=== PATIENT | female | born 1980 | race Caucasian/White ===

== ENCOUNTER 2016-09-01 06:33 | Emergency (ER) | payer BC ==
[2016-09-01] MEDS ORDERED: Ondansetron 4 MG/2 ML SDV IVPUSH ONE (07:10)
[2016-09-01] MEDS ORDERED: Pantoprazole 40 MG Vial IVPUSH ONE (07:10)
[2016-09-01] MEDS ORDERED: Sodium Chloride 0.9% 1,000 ML IV ONE ×2 (07:10→08:43)
[2016-09-01] MEDS ORDERED: HYDROmorphone 2 MG/ML Syringe IVPUSH ONE (07:11)
[2016-09-01] MEDS ORDERED: Sodium Chloride 0.9% 10 ML Syringe FLUSH PRN (07:11)
[2016-09-01] MEDS ORDERED: Sodium Chloride 0.9% 2.5 ML Syringe FLUSH PRN (07:11)
--- NOTE | 2016-09-01 07:16 | EDM.PDOC ---
ED HPI GENERAL MEDICAL PROBLEM - General Chief Complaint: General Stated Complaint: DEHYDRATION Time Seen by Provider: 09/01/16 07:02 - History of Present Illness INITIAL COMMENTS - FREE TEXT/NARRATIVE: HISTORY AND PHYSICAL: History of present illness: The patient is a 35-year-old female with a history of cholecystectomy and many year history of episodic abdominal pain with vomiting presents with mid abdominal pain that is radiated throughout the entire abdomen and intractable vomiting that started last evening. According to the patient she has had multiple episodes of this over the last many years but her last bad episode was about 3 years ago. She says she was seen at the [facility] in the past and had multiple tests and the only thing they could find was "bile reflux". The patient has had no other bowel surgeries but has had scopes in the past and has not seen a doctor for this recently. She does not site any particular trigger or food intolerances. She has associated diarrhea with this which is watery and greenish yellow in color without black or bloody stools. The pain does not localize to the upper or lower, right or left sides of her abdomen. She says it is more diffuse but originates in the middle of her abdomen. She says she usually just deals with this at home and it has not been this bad in a long time. She says that in the beginning when this started several years ago she would have multiple episodes and they seem to taper off and not occur as frequently. Patient denies any dysuria or hematuria and has no flank or back pain. The patient initially tells me when I first walked in the room that she is just dehydrated and wants something for hydration as well as something for the nausea and the pain and that "you're not to figure out what's wrong with me ". She has not had any formal testing for this problem in the last 3 years. Patient states she was never told that she had IBS syndrome and protonix in the past but was also never told that she had ulcer disease The patient also states that she had followed with the chemical production engineer's [facility] in [place] but he left and she did not get reconnected with anyone else. She also has a local provider at [facility], Dr. Loomis, who she has not seen Review of systems: As per history of present illness and below otherwise all systems reviewed and negative. Past medical history: As per history of present illness and as reviewed below otherwise noncontributory. Surgical history: As per history of present illness and as reviewed below otherwise noncontributory. Social history: No reported history of drug or alcohol abuse. Family history: As per history of present illness and as reviewed below otherwise noncontributory. Physical exam: Gen.: Well-developed well-nourished female was then tearful and uncomfortable in the room but moves easily and ambulates without assistance HEENT: Atraumatic, normocephalic, negative for conjunctival pallor or scleral icterus, mucous membranes moist, throat tachycardia, neck supple, nontender, trachea midline. Lungs: Clear to auscultation, breath sounds equal bilaterally, chest nontender. Heart: S1S2, regular rhythm and slightly tachycardic rate on my evaluation, negative for clicks, rubs, or JVD. Abdomen: Soft, nondistended, bowel sounds are hypoactive and abdomen exhibits only minimal tenderness on deep palpation with distraction in the periumbilical area, there is no rebound or guarding appreciated on my exam. Negative for masses or hepatosplenomegaly. Negative for costovertebral tenderness. Pelvis: Stable nontender. Genitourinary: Deferred. Rectal: Deferred. Extremities: Atraumatic, negative for cords or calf pain. Neurovascular unremarkable. Neuro: Awake, alert, oriented. Cranial nerves II through XII unremarkable. Cerebellum unremarkable. Motor and sensory unremarkable throughout. Exam nonfocal. Diagnostics: CBC CMP amylase lipase lactic acid UA UCG CT scan of the abdomen and pelvis Therapeutics: IV IV fluids and proton X Zofran and Dilaudid Patient told nursing that prior to going to CT when she was reevaluated by them she had no nausea no more vomiting and the pain was significantly improved. 1012: Dr Liang the radiologist called me and states that he is not clear about what's going on in the right lower quadrant but cannot clearly state that there is no appendicitis and it is unclear if it's complete GI for their his gynecologic involvement. I will proceed to contact our surgeon aviation warfare systems operator and discussed the case with her 1012: Case was discussed with her surgeon aviation warfare systems operator Dr. Neri; she has reviewed the CT scan and the labs and feels that if the patient is pain-free she can go home with tramadol and Zofran and she will see the patient in her clinic tomorrow. I've inform the patient of all testing results and the care plan for follow-up urgently tomorrow in the clinic and that Dr. Neri's office will make sure to give her an appointment and contact her but I will also give her information to contact them. Advised on reasons to return and I prescribe Zofran and tramadol for home. Impression: Episodic abdominal pain and vomiting etiology unclear Definitive disposition and diagnosis as appropriate pending reevaluation and review of above. Abdominal Pain Score (Numeric/FACES): 6 - Related Data Allergies Allergy/AdvReac Type Severity Reaction Status Date / Time No Known Allergies Allergy Verified 06/20/13 15:26 Home Meds: Home Meds . [No Known Home Meds] 09/01/16 [History] Social & Family History - Alcohol Use Days Per Week of Alcohol Use: 0 - Recreational Drug Use Recreational Drug Use: No Drug Use in Last 12 Months: No ED ROS GENERAL - Review of Systems Review Of Systems: ROS reveals no pertinent complaints other than HPI. ED EXAM, GENERAL - Physical Exam Exam: See Below (See dictation) Course - Vital Signs Last Recorded V/S: Last Vital Signs Temp 36.7 C 09/01/16 10:01 Pulse 60 09/01/16 10:01 Resp 16 09/01/16 10:01 BP 95/51 L 09/01/16 10:01 Pulse Ox 95 09/01/16 10:01 - Orders/Labs/Meds Orders: Active Orders 24 hr Category Date Time Status Sodium Chloride 0.9% [Saline Flush] Med 09/01/16 07:11 Active 10 ml FLUSH ASDIRECTED PRN Sodium Chloride 0.9% [Saline Flush] Med 09/01/16 07:11 Active 2.5 ml FLUSH ASDIRECTED PRN Saline Lock Insert [OM.PC] Stat Oth 09/01/16 07:10 Ordered Medication Orders Sodium Chloride (Saline Flush) 10 ml FLUSH ASDIRECTED PRN PRN Reason: Keep Vein Open Sodium Chloride (Saline Flush) 2.5 ml FLUSH ASDIRECTED PRN PRN Reason: Keep Vein Open Labs: Laboratory Tests 09/01/16 09/01/16 09/01/16 Range/Units 06:55 06:55 07:18 WBC 9.07 (4.0-11.0) K/uL RBC 4.92 (4.30-5.90) M/uL Hgb 15.4 (12.0-16.0) g/dL Hct 43.6 (36.0-46.0) % MCV 88.6 (80.0-98.0) fL MCH 31.3 (27.0-32.0) pg MCHC 35.3 (31.0-37.0) g/dL RDW Std Deviation 43.7 (28.0-62.0) fl RDW Coeff of Afshan 14 (11.0-15.0) % Plt Count 245 (150-400) K/uL MPV 10.00 (7.40-12.00) fL Neut % (Auto) 87.8 H (48.0-80.0) % Lymph % (Auto) 6.3 L (16.0-40.0) % [place] % (Auto) 5.8 (0.0-15.0) % Eos % (Auto) 0.0 (0.0-7.0) % Baso % (Auto) 0.1 (0.0-1.5) % Neut # (Auto) 8.0 H (1.4-5.7) K/uL Lymph # (Auto) 0.6 (0.6-2.4) K/uL [place] # (Auto) 0.5 (0.0-0.8) K/uL Eos # (Auto) 0.0 (0.0-0.7) K/uL Baso # (Auto) 0.0 (0.0-0.1) K/uL Nucleated RBC % 0.0 /100WBC Nucleated RBCs # 0 K/uL Lactate (0.20-2.00) mmol/L Sodium (136-146) mmol/L Potassium (3.5-5.1) mmol/L Chloride (98-110) mmol/L Carbon Dioxide (21-31) mmol/L BUN (6.0-23.0) mg/dL Creatinine (0.6-1.5) mg/dL Est Cr Clr Drug Dosing mL/min Estimated GFR (MDRD) ml/min Glucose (60-110) mg/dL Calcium (8.8-10.8) mg/dL Total Bilirubin (0.1-1.5) mg/dL AST (5-40) IU/L ALT (8-54) IU/L Alkaline Phosphatase (40-150) Total Protein (6.0-8.0) g/dL Albumin (3.5-5.0) g/dL Globulin (2.0-3.5) g/dL Albumin/Globulin Ratio (1.3-2.8) Amylase (10-90) U/L Lipase (7-80) U/L Urine Color YELLOW Urine Appearance CLEAR Urine pH 6.0 (5.0-8.0) Ur Specific [place] >= 1.030 (1.001-1.035) Urine Protein 100 (NEGATIVE) mg/dL Urine Glucose (UA) 100 H (NEGATIVE) mg/dL Urine Ketones NEGATIVE (NEGATIVE) mg/dL Urine Occult Blood MODERATE (NEGATIVE) Urine Nitrite NEGATIVE (NEGATIVE) Urine Bilirubin SMALL H (NEGATIVE) Urine Ictotest NEGATIVE Urine Urobilinogen 1.0 (<2.0) EU/dL Ur Leukocyte Esterase NEGATIVE (NEGATIVE) Urine RBC 9-12 (0-2/HPF) Urine WBC 2-4 (0-5/HPF) Ur Epithelial Cells FEW (NONE-FEW) Urine Bacteria FEW (NEGATIVE) Urine Mucus LIGHT (NONE-MOD) Urine HCG, Qual NEGATIVE (NEGATIVE) 09/01/16 09/01/16 Range/Units 07:18 07:18 WBC (4.0-11.0) K/uL RBC (4.30-5.90) M/uL Hgb (12.0-16.0) g/dL Hct (36.0-46.0) % MCV (80.0-98.0) fL MCH (27.0-32.0) pg MCHC (31.0-37.0) g/dL RDW Std Deviation (28.0-62.0) fl RDW Coeff of Afshan (11.0-15.0) % Plt Count (150-400) K/uL MPV (7.40-12.00) fL Neut % (Auto) (48.0-80.0) % Lymph % (Auto) (16.0-40.0) % [place] % (Auto) (0.0-15.0) % Eos % (Auto) (0.0-7.0) % Baso % (Auto) (0.0-1.5) % Neut # (Auto) (1.4-5.7) K/uL Lymph # (Auto) (0.6-2.4) K/uL [place] # (Auto) (0.0-0.8) K/uL Eos # (Auto) (0.0-0.7) K/uL Baso # (Auto) (0.0-0.1) K/uL Nucleated RBC % /100WBC Nucleated RBCs # K/uL Lactate 2.2 H (0.20-2.00) mmol/L Sodium 141 (136-146) mmol/L Potassium 3.6 (3.5-5.1) mmol/L Chloride 112 H (98-110) mmol/L Carbon Dioxide 14 L (21-31) mmol/L BUN 18 (6.0-23.0) mg/dL Creatinine 1.2 (0.6-1.5) mg/dL Est Cr Clr Drug Dosing 55.16 mL/min Estimated GFR (MDRD) 51.7 ml/min Glucose 190 H (60-110) mg/dL Calcium 9.3 (8.8-10.8) mg/dL Total Bilirubin 0.4 (0.1-1.5) mg/dL AST 22 (5-40) IU/L ALT 24 (8-54) IU/L Alkaline Phosphatase 65 (40-150) Total Protein 7.9 (6.0-8.0) g/dL Albumin 4.7 (3.5-5.0) g/dL Globulin 3.2 (2.0-3.5) g/dL Albumin/Globulin Ratio 1.5 (1.3-2.8) Amylase 16 (10-90) U/L Lipase 8 (7-80) U/L Urine Color Urine Appearance Urine pH (5.0-8.0) Ur Specific [place] (1.001-1.035) Urine Protein (NEGATIVE) mg/dL Urine Glucose (UA) (NEGATIVE) mg/dL Urine Ketones (NEGATIVE) mg/dL Urine Occult Blood (NEGATIVE) Urine Nitrite (NEGATIVE) Urine Bilirubin (NEGATIVE) Urine Ictotest Urine Urobilinogen (<2.0) EU/dL Ur Leukocyte Esterase (NEGATIVE) Urine RBC (0-2/HPF) Urine WBC (0-5/HPF) Ur Epithelial Cells (NONE-FEW) Urine Bacteria (NEGATIVE) Urine Mucus (NONE-MOD) Urine HCG, Qual (NEGATIVE) Meds: Medications Generic Name Dose Route Start Last Admin Trade Name Freq PRN Reason Stop Dose Admin Sodium Chloride 10 ml 09/01/16 07:11 Saline Flush FLUSH ASDIRECTED PRN Keep Vein Open Sodium Chloride 2.5 ml 09/01/16 07:11 Saline Flush FLUSH ASDIRECTED PRN Keep Vein Open Discontinued Medications Generic Name Dose Route Start Last Admin Trade Name Freq PRN Reason Stop Dose Admin Hydromorphone HCl 1 mg 09/01/16 07:11 09/01/16 08:07 Dilaudid IVPUSH 09/01/16 07:12 1 mg ONETIME ONE Administration Sodium Chloride 1,000 mls @ 999 mls/hr 09/01/16 07:10 09/01/16 07:45 Normal Saline IV 09/01/16 08:10 999 mls/hr STAT ONE Administration Sodium Chloride 1,000 mls @ 999 mls/hr 09/01/16 08:43 09/01/16 09:05 Normal Saline IV 09/01/16 09:43 999 mls/hr STAT ONE Administration Iopamidol 100 ml 09/01/16 07:26 Isovue Multipack-370 (76%) IVPUSH 09/01/16 07:27 ONETIME STA Ondansetron HCl 4 mg 09/01/16 07:10 09/01/16 07:58 Zofran IVPUSH 09/01/16 07:11 4 mg ONETIME ONE Administration Pantoprazole Sodium 80 mg 09/01/16 07:10 09/01/16 08:00 Protonix Iv IVPUSH 09/01/16 07:11 80 mg .BOLUS ONE Administration Departure - Departure Time of Disposition: 10:23 Disposition: Home, Self-Care 01 Condition: Good Clinical Impression: Vomiting, Abdominal pain - Discharge Information Forms: ED Department Discharge Additional Instructions: The following information is given to patients seen in the emergency department who are being discharged to home. This information is to outline your options for follow-up care. We provide all patients seen in our emergency department with a follow-up referral. The need for follow-up, as well as the timing and circumstances, are variable depending upon the specifics of your emergency department visit. If you don't have a primary care physician on staff, we will provide you with a referral. We always advise you to contact your personal physician following an emergency department visit to inform them of the circumstance of the visit and for follow-up with them and/or the need for any referrals to a consulting specialist. The emergency department will also refer you to a specialist when appropriate. This referral assures that you have the opportunity for followup care with a specialist. All of these measure are taken in an effort to provide you with optimal care, which includes your followup. Under all circumstances we always encourage you to contact your private physician who remains a resource for coordinating your care. When calling for followup care, please make the office aware that this follow-up is from your recent emergency room visit. If for any reason you are refused follow-up, please contact the [facility] emergency department at and ask to speak to the emergency department charge nurse. [address] [place] [address] [facility] [address] [place] [phone] Please call and schedule a follow-up appointment with your provider [facility] Dr. Loomis for sometime next week and he will be contacted by Dr Neri's office with an appointment time in her clinic tomorrow to be seen and reevaluated. Please use medications as needed and prescribed. Return to ER as neededdiscussed. Please go and have outpatient labs performed tomorrow prior to your appointment with Dr. Neri. - My Orders Last 24 Hours: My Active Orders 09/01/16 07:10 Saline Lock Insert [OM.PC] Stat 09/01/16 07:11 Sodium Chloride 0.9% [Saline Flush] 10 ml FLUSH ASDIRECTED PRN Sodium Chloride 0.9% [Saline Flush] 2.5 ml FLUSH ASDIRECTED PRN - Assessment/Plan Last 24 Hours: My Active Orders 09/01/16 07:10 Saline Lock Insert [OM.PC] Stat 09/01/16 07:11 Sodium Chloride 0.9% [Saline Flush] 10 ml FLUSH ASDIRECTED PRN Sodium Chloride 0.9% [Saline Flush] 2.5 ml FLUSH ASDIRECTED PRN
[2016-09-01] MEDS ORDERED: Iopamidol 755 MG/ML 500 ML Multipack Bottle IVPUSH STA (07:26)
--- NOTE | 2016-09-01 10:16 | CT ---
CT of the abdomen and pelvis with contrast. HISTORY: Pain TECHNIQUE: Axial CT images were obtained of the abdomen and pelvis following administration of 60 mL of Isovue-370 in the right antecubital fossa without complication. Coronal and sagittal reconstruct ions obtained. FINDINGS: The lung bases are clear, no pleural effusion. The liver, spleen, adrenal glands, and pancreas appear normal. Cholecystectomy clips are noted. The common bile duct measures 7 mm. There is no bulky retroperitoneal lymphadenopathy or abdominal ascit es. The kidneys enhance and function symmetrically without evidence of obstructive uropathy. Tiny right renal cysts are noted. The large and small bowel are grossly normal in caliber without evidence of obstruction. The append ix is not identified. There is a conglomeration of loops of bowel and fluid within the right lower q uadrant. There are several small pockets of gas also noted, is predominantly appear intraluminal, ho wever a few cannot be confirmed. There is an IUD noted within the uterus. No significant free pelvic fluid. No bulky pelvic lymphadenopathy. No suspicious osseous abnormalities identified. IMPRESSION: 1. The appendix is not identified. Multiple loops of mildly prominent collapsed bowel are noted with in the right upper quadrant, with minimal adjacent stranding. An acute process is not excluded. 2. Otherwise grossly unremarkable CT abdomen and pelvis.
[2016-09-01 11:18] VITALS: BP 98/55
== END 2016-09-01 11:13 | disposition home or self-care (01) ==
LOC: MW.ED 06:33
DX: R11.10 Vomiting, unspecified (principal); R10.33 Periumbilical pain; Z90.49 Acquired absence of other specified parts of digestive tract
CPT/HCPCS: 36415; 74177; 80053; 81001; 81025; 82150; 83605; 83690; 85025; 96361; 96374; 96375; 99284; C9113; J1170; J2405; J7040

== ENCOUNTER 2016-09-15 07:20 | Observation (INO) | payer BC ==
[~2016-09-15 07:20] MED LIST: Sodium Chloride 0.9% 10 ML Syringe FLUSH PRN; Sodium Chloride 0.9% 2.5 ML Syringe FLUSH PRN
[2016-09-15] MEDS ORDERED: Propofol 200 MG/20 ML SDV ONE ×2 (07:25→08:34)
[2016-09-15] MEDS ORDERED: Lidocaine 2% 5 ML SDV ONE (07:25)
[2016-09-15] MEDS: Lactated Ringers 1,000 ML IV SCH (07:46)
--- NOTE | 2016-09-15 07:53 | PCM.PREANE ---
Preanesthetic Assessment - Anesthesia/Transfusion/Family Hx Anesthesia History: Prior Anesthesia Without Reaction Other Type of Anesthesia Reaction Comment: PT DENIES ANY PROBLEMS WITH PAST ANESTHESIA Family History of Anesthesia Reaction: No Transfusion History: No Prior Transfusion(s) - Review of Systems General: No Symptoms Pulmonary: No Symptoms Cardiovascular: No Symptoms Gastrointestinal: No symptoms Neurological: No Symptoms Other: Reports: None - Physical Assessment NPO Status Date: 09/14/16 O2 Sat by Pulse Oximetry: 97 Respiratory Rate: 16 Vital Signs: Last Vital Signs Temp 36.2 C 09/15/16 07:44 Pulse 64 09/15/16 07:44 Resp 16 09/15/16 07:44 BP 101/65 09/15/16 07:44 Pulse Ox 97 09/15/16 07:44 Height: 1.6 m Weight: 60.781 kg ASA Class: 2 Mental Status: Alert & Oriented x3 Airway Class: Mallampati = 2 Dentition: Reports: Normal Dentition ROM/Head Extension: Full Lungs: Clear to auscultation, Normal respiratory effort - Lab Values: Laboratory Last Values Urine HCG, Qual NEGATIVE (NEGATIVE) 09/15/16 07:25 - Allergies Allergies/Adverse Reactions: Allergies Allergy/AdvReac Type Severity Reaction Status Date / Time No Known Allergies Allergy Verified 06/20/13 15:26 - Anesthesia Plan Pre-Op Medication Ordered: None - Acknowledgements Anesthesia Type Planned: MAC Pt an Appropriate Candidate for the Planned Anesthesia: Yes Alternatives and Risks of Anesthesia Discussed w Pt/Guardian: Yes Pt/Guardian Understands and Agrees with Anesthesia Plan: Yes PreAnesthesia Questionnaire Gastrointestinal History: Reports: GERD, Other (See Below) Other Gastrointestinal History: "bile reflux" Genitourinary History: Reports: None 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: Reports: Psychiatric History: - Infectious Disease History Infectious Disease History: Reports: Chicken Pox - Past Surgical History Head Surgeries/Procedures: Reports: None GI Surgical History: Reports: Cholecystectomy, Other (See Below) Other GI Surgeries/Procedures: laparoscopy Female Surgical History: Reports: Section - SUBSTANCE USE Smoking Status *Q: Current Every Day Smoker Tobacco Use Within Last Twelve Months: Cigarettes Days Per Week of Alcohol Use: 0 Recreational Drug Use History: No - HOME MEDS Home Medications: Home Meds Multivitamin [Multivitamins] 1 tab PO DAILY 09/10/16 [History] - CURRENT (IN HOUSE) MEDS Current Meds: Current Medications Lactated Ringer's (Ringers, Lactated) 1,000 mls @ 125 mls/hr IV ASDIRECTED DAVID Last Admin: 09/15/16 07:46 Dose: 125 mls/hr Sodium Chloride (Saline Flush) 10 ml FLUSH ASDIRECTED PRN PRN Reason: Keep Vein Open Sodium Chloride (Saline Flush) 2.5 ml FLUSH ASDIRECTED PRN PRN Reason: Keep Vein Open Discontinued Medications Lidocaine (Xylocaine-Mpf 2%) Confirm Administered Dose 5 ml .ROUTE .STK-MED ONE Stop: 09/15/16 07:26 Propofol (Diprivan 20 Ml) Confirm Administered Dose 400 mg .ROUTE .STK-MED ONE Stop: 09/15/16 07:26
[2016-09-15] MEDS ORDERED: Albuterol/Ipratropium 3.0-0.5 MG/3 ML Neb Soln NEB ONE (09:01)
--- NOTE | 2016-09-15 09:17 | PCM.OPNOTE ---
- General Post-Op/Procedure Note Date of Surgery/Procedure: 09/15/16 Operative Procedure(s): EGD and colonoscopy Findings: Hiatal hernia, bile reflux gastritis, sigmoid colon polyp Pre Op Diagnosis: Nausea and vomiting, change in bowel habits Post-Op Diagnosis: HIatal hernia, bile reflux gastritis, and sigmoid colon polyp [place]est[place] [facility] [place] Surgeon: Bridget Neri Condition: Good
--- NOTE | 2016-09-15 09:33 | PCM.POSTAN ---
POST ANESTHESIA ASSESSMENT - MENTAL STATUS Mental Status: alert, oriented - VITAL SIGNS SaO2: 98 (rom air) - RESPIRATORY Respiratory Status: respiratory rate WNL (has cough), airway patent, O2 saturation stable - CARDIOVASCULAR CV Status: pulse rate WNL, blood pressure stable - GASTROINTESTINAL GI Status: no symptoms - POST OP HYDRATION Hydration Status: adequate & stable
[2016-09-15] MEDS: Ondansetron 4 MG/2 ML SDV IVPUSH PRN ×2 (09:49→20:37)
--- NOTE | 2016-09-15 10:20 | PCM48HPAN ---
Post Anesthesia Note - EVALUATION WITHIN 48HRS OF ANESTHETIC Vital Signs in Normal Range: Yes Patient Participated in Evaluation: Yes Respiratory Function Stable: Yes Airway Patent: Yes Cardiovascular Function Stable: Yes Hydration Status Stable: Yes Pain Control Satisfactory: Yes Nausea and Vomiting Control Satisfactory: Yes Mental Status Recovered: Yes
[2016-09-15] MEDS ORDERED: Metoclopramide 10 MG Tab PO ONE (13:39)
[2016-09-15] MEDS ORDERED: Scopolamine 1.5 MG Transdermal Patch TRDERM PRN (13:39)
[2016-09-15] MEDS ORDERED: Promethazine 25 MG/ML SDV IM ONE (14:28)
[2016-09-15] MEDS ORDERED: Ondansetron 4 MG/2 ML SDV IVPUSH ONE (14:29)
[2016-09-15] MEDS ORDERED: Lactated Ringers 1,000 ML IV ONE (14:29)
--- NOTE | 2016-09-15 14:32 | PCM.SN ---
- Free Text/Narrative Note: Rogelio returned to same day surgery soon after leaving due to overwhelming nausea and retching. She was given po reglan and a scopalamine patch with no improvement. An IV was placed and she will be given 1L of LR as well as IV zofran 4 mg and IM phenergan 25 mg. Her vitals as stable. If her nausea is not improved will admit for intractable nausea and vomiting.
[2016-09-15] MEDS ORDERED: HYDROmorphone 2 MG/ML Syringe IVPUSH ONE (14:59)
[2016-09-15] MEDS ORDERED: LORazepam 2 MG/ML MDV IVPUSH ONE (14:59)
--- NOTE | 2016-09-15 15:18 | PCM.HP ---
H&P History of Present Illness - General Date of Service: 09/15/16 Admit Problem/Dx: Nausea, vomiting, change in bowel habits Source of Information: Patient History Limitations: Reports: No Limitations - History of Present Illness Initial Comments - Free Text/Narative: Patient is a 35 year old female who underwent a diagnostic EGD and colonoscopy earlier today. She has a long history of chronic nausea and vomiting. She underwent a work up at [facility] previously and was found to have bile acid reflux gastritis and a hiatal hernia. On exam today she was found to have bile reflux into her stomach and gastritis. She did have a small to moderate sized hiatal hernia. Biopsies were taken in the stomach. Her colonoscopy showed a small sigmoid colon polyp. She aspirated oral secretions during the case. After the case the patient was very nauseated, but stated that she felt she needed to just go home. She was discharged in stable condition but came back a few hours later with intractable nausea and vomiting. She was given a scopalamine patch and po reglan with no relief in her symptoms. She had an IV placed and a 1L bolus of LR given. She was given IV zofran and IM phenergan with no improvement in her symptoms. She was overwhelmed emotionally. Her vitals are stable and abdomen flat soft and nontender. - Related Data Allergies/Adverse Reactions: Allergies Allergy/AdvReac Type Severity Reaction Status Date / Time No Known Allergies Allergy Verified 06/20/13 15:26 Home Medications: Home Meds Multivitamin [Multivitamins] 1 tab PO DAILY 09/10/16 [History] Levofloxacin 750 mg PO DAILY #5 tablet 09/15/16 [Rx] Pantoprazole [ProTONIX] 40 mg PO ACBREAKFAST #60 tab.cr 09/15/16 [Rx] Sucralfate [Carafate] 1 gm PO QIDACANDBED #56 tab 09/15/16 [Rx] Past Medical History Gastrointestinal History: Reports: GERD, Other (See Below) Other Gastrointestinal History: "bile reflux" Genitourinary History: Reports: None 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: Psychiatric History: - Infectious Disease History Infectious Disease History: Reports: Chicken Pox - Past Surgical History Head Surgeries/Procedures: Reports: None GI Surgical History: Reports: Cholecystectomy, Other (See Below) Other GI Surgeries/Procedures: laparoscopy Female Surgical History: Reports: Section Social & Family History - Family History Family Medical History: Noncontributory - Tobacco Use Smoking Status *Q: Current Every Day Smoker Years of Tobacco use: 15 Packs/Tins Daily: 0.5 - Caffeine Use Caffeine Use: Reports: Coffee Caffeine Use Comment: 1-3 daily - Alcohol Use Days Per Week of Alcohol Use: 0 - Recreational Drug Use Recreational Drug Use: No Drug Use in Last 12 Months: No H&P Review of Systems - Review of Systems: Review Of Systems: ROS reveals no pertinent complaints other than HPI. Exam - Exam Exam: See Below - Vital Signs Vital Signs: Last Vital Signs Temp 36.4 C 09/15/16 13:45 Pulse 70 09/15/16 15:00 Resp 20 09/15/16 15:00 BP 102/75 09/15/16 15:00 Pulse Ox 95 09/15/16 15:00 Weight: 60.781 kg - Exam General: Alert, Oriented, Severe Distress HEENT: Mucosa Moist & [place], Nares Patent Neck: Supple, Trachea Midline Lungs: Normal Respiratory Effort Cardiovascular: Regular Rate Abdomen: Soft. No: Peritoneal Signs, Distention, Guarding, Rigidity, Rebound, Tenderness Back Exam: Normal Inspection Skin: Warm, Dry, Intact Psychiatric: Labile Mood, Anxious, Depressed - Patient Data Lab Results Last 24 hrs: Laboratory Results - last 24 hr 09/15/16 Range/Units 07:25 Urine HCG, Qual NEGATIVE (NEGATIVE) *Q Meaningful Use (ADM) - VTE *Q VTE Criteria *Q: - Stroke *Q Stroke Criteria *Q: - AMI *Q AMI Criteria *Q: - Problem List (1) Hiatal hernia SNOMED Code(s): 40756008 ICD Code: K44.9 - DIAPHRAGMATIC HERNIA WITHOUT OBSTRUCTION OR GANGRENE Status: Acute Current Visit: Yes (2) Gastritis, bile acid reflux SNOMED Code(s): 67281947, 43883326 ICD Code: K29.60 - OTHER GASTRITIS WITHOUT BLEEDING Status: Acute Current Visit: Yes (3) Intractable nausea and vomiting SNOMED Code(s): 712829164, 872315236 ICD Code: R11.2 - NAUSEA WITH VOMITING, UNSPECIFIED Status: Acute Current Visit: Yes Problem List Initiated/Reviewed/Updated: Yes Orders Last 24hrs: Active Orders 24 hr Category Date Time Status RT Aerosol Therapy [RC] ASDIRECTED Care 09/15/16 09:01 Active Ready for Discharge [RC] PER UNIT ROUTINE Care 09/15/16 09:23 Active Lactated Ringers [Ringers, Lactated] 1,000 ml Med 09/15/16 14:29 Active IV .BOLUS Ondansetron [Zofran] Med 09/15/16 09:41 Active 4 mg IVPUSH Q6H PRN Scopolamine [Transderm-Scop] Med 09/15/16 13:39 Active 1.5 mg TRDERM Q72H PRN Medication Orders Lactated Ringer's (Ringers, Lactated) 1,000 mls @ 125 mls/hr IV ASDIRECTED DAVID Last Admin: 09/15/16 07:46 Dose: 125 mls/hr Lactated Ringer's (Ringers, Lactated) 1,000 mls @ 1,000 mls/hr IV .BOLUS ONE Stop: 09/15/16 15:28 Last Admin: 09/15/16 14:45 Dose: 1,000 mls/hr Ondansetron HCl (Zofran) 4 mg IVPUSH Q6H PRN PRN Reason: Nausea/Vomiting Last Admin: 09/15/16 09:49 Dose: 4 mg Scopolamine (Transderm-Scop) 1.5 mg TRDERM Q72H PRN PRN Reason: Nausea/Vomiting Last Admin: 09/15/16 13:57 Dose: 1.5 mg Sodium Chloride (Saline Flush) 10 ml FLUSH ASDIRECTED PRN PRN Reason: Keep Vein Open Sodium Chloride (Saline Flush) 2.5 ml FLUSH ASDIRECTED PRN PRN Reason: Keep Vein Open Assessment/Plan Comment:: The patient most likely has exacerbation of her underlying symptoms (chronic nausea and vomiting) secondary to anesthetic drugs and the procedures. Her clinical exam is unremarkable and her vitals are stable. I do not feel that this is due to a post operative complication. I will admit the patient to observation. I will check a CBC and BMP. She will be given IV fluids, kept NPO, and started on IV protonix. I will also write for prn zofran, phenergan, and reglan. I will also give her IV antibiotics given her episode of aspiration during the case. Biopsies were sent of the gastric mucosa but I will check her for H. pylori antigen as well.
[2016-09-15] MEDS ORDERED: HYDROmorphone 2 MG/ML Syringe IVPUSH PRN (15:24)
[2016-09-15] MEDS ORDERED: Promethazine 25 MG/ML SDV IM PRN (15:24)
[2016-09-15] MEDS ORDERED: Acetaminophen 650 MG Supp RECTAL PRN (15:24)
[2016-09-15] MEDS: Pantoprazole 40 MG in Sodium Chloride 0.9% 10 ML IVPUSH SCH (16:36)
[2016-09-15] MEDS: Piperacillin/Tazobactam 3.375 GM in Sodium Chloride 0.9% 50 ML IV SCH ×2 (16:39→23:10)
[2016-09-15 16:55] LABS: CHLORIDE,CL 110 mmol/L (98-110); SODIUM,NA 141 mmol/L (136-146)
[2016-09-15] MEDS: Metoclopramide 10 MG/2 ML SDV IV PRN (20:38)
--- NOTE | 2016-09-16 00:01 | OR ---
SURGEON: CHACHO DOMINIQUE MD DATE OF PROCEDURE: 09/15/2016 PREOPERATIVE DIAGNOSIS: Chronic nausea and change in bowel habits. POSTOPERATIVE DIAGNOSIS: Hiatal hernia, bile reflux gastritis, and sigmoid polyp. PROCEDURE PERFORMED: Diagnostic EGD and colonoscopy. INSTRUMENT USED: Olympus endoscope and colonoscope. ANESTHESIA: MAC. EXTENT OF EXAM: To the second portion of the duodenum, and to the cecum. PREPARATION: Good. LIMITATIONS: None. INDICATION FOR EXAMINATION: The patient is a 35-year-old female, who has an extensive workup for chronic nausea and vomiting. In the past, she had been diagnosed with bile reflux gastritis as well as hiatal hernia. More recently, the patient's symptoms have become worse. Along with this, the patient has had a change in her bowel habits. The decision was made to perform a diagnostic EGD and colonoscopy. We discussed the procedure as well as expected perioperative course. We discussed the risks, including bleeding, infection, or damage to surrounding structures. The patient verbalized understanding and wished to proceed. PROCEDURE IN DETAIL: The patient was brought to the endoscopy suite and placed in the beach chair position. A time-out was completed verifying the patient's name, age, date of , allergies, and procedure to be performed. Monitored anesthesia care was induced and continuous oxygen was provided via nasal cannula throughout the procedure. After adequate sedation was achieved, the Olympus endoscope was passed over the patient's tongue down into her esophagus and advanced under direct visualization to the second portion of duodenum. This appeared normal and a photograph was taken. The scope was then brought into the stomach. The patient had multiple episodes where the duodenal contents refluxed back up into the stomach. A photograph was taken of the pylorus as well as the esophageal hiatus. The patient appeared to have a type 1 hiatal hernia. The gastric mucosa appeared inflamed with no evidence of ulceration. Biopsies were taken of the gastric antrum, body, and fundus, and sent for H. pylori and pathology review. The scope was then brought into the esophagus and photographs taken of the hiatal hernia sac as well as the GE junction and distal esophagus. The mucosa in these areas all appeared normal with no evidence of inflammation. Care was then taken to evacuate any contents of the stomach and any air that was in it. The scope was slowly withdrawn back through the esophagus. The remainder of the esophageal mucosa appeared normal. The scope was removed from the patient and this portion of procedure terminated. After the scope was removed from the patient, however, the patient did aspirate some oral secretions and had a coughing episode associated with decrease in her sats. She was vigorously suctioned and an oral airway and face mask applied. With these measures, her oxygen saturations and her coughing improved. Once we were sure that the patient was stable, she was placed in left lateral decubitus position. A digital rectal exam was performed. This exam was within normal limits. A well lubricated colonoscope was inserted in the rectum and advanced under direct visualization to the level of the cecum. The cecum was identified by both visual and anatomic landmarks. A photograph was taken of the cecal cap as well as with the scope retroflexed within the cecum. The scope was then fully withdrawn while examining the color, texture, anatomy, and integrity of the mucosa from the cecum to the anal canal. A small 1 mm polyp was noted within the sigmoid colon. This was removed using a cold biopsy forceps. The remainder of the colon appeared normal. The scope was brought into the rectum and retroflexed to allow visualization of the anal canal opening. This appeared normal. Photograph was taken. The scope was straightened out and removed from the patient. The cecum to anus time was 12 minutes. The patient was then transferred to the recovery room in stable condition. ENDOSCOPIC DIAGNOSES: Hiatal hernia, bile reflux, gastritis, and sigmoid colon polyp. RECOMMENDATIONS: Follow up in the clinic in 2 weeks. SOLANGE TURNER /[id number]
[2016-09-16] MEDS: Lactated Ringers 1,000 ML IV SCH (02:26)
[2016-09-16] MEDS: Ondansetron 4 MG/2 ML SDV IVPUSH PRN (02:27)
[2016-09-16] MEDS: Metoclopramide 10 MG/2 ML SDV IV PRN (02:27)
[2016-09-16] MEDS: Piperacillin/Tazobactam 3.375 GM in Sodium Chloride 0.9% 50 ML IV SCH (06:42)
[2016-09-16] MEDS ORDERED: Metoclopramide 10 MG Tab PO SCH (07:15)
[2016-09-16] MEDS: Pantoprazole 40 MG in Sodium Chloride 0.9% 10 ML IVPUSH SCH (08:29)
[2016-09-16] MEDS ORDERED: Cholestyramine/Aspartame Powder 239.4 GM Jar PO SCH (09:00)
[2016-09-16 09:37] VITALS: BP 108/66
--- NOTE | 2016-09-16 15:52 | PCM.DCSUM1 ---
Discharge Summary - Hospital Course Free Text/Narrative:: Patient is a 35-year-old female with a past medical history significant for a hiatal hernia and bile reflux gastritis. She has had chronic nausea and vomiting through her entire life. She underwent a workup at [facility] and no etiology was found. The patient overall has been doing well until recently when her nausea and vomiting became more severe. She is taken to the endoscopy suite to perform a diagnostic EGD and colonoscopy. She has had a hiatal hernia and bile reflux gastritis. She also had a small polyp in her sigmoid colon. Postoperatively her nausea was poorly controlled but the patient felt like she could manage her symptoms at home. 2 hours after discharge the patient returned to the same-day surgery preoperative area with uncontrollable nausea and vomiting. She was given Zofran, Phenergan, Reglan, and a scopolamine patch with no improvement in her symptoms. Decision was made to admit the patient for intractable nausea and vomiting. She was given IV Dilaudid and Ativan which helped break the cyclical nausea and vomiting symptoms she was experiencing. The patient rested comfortably after given these meds as taken to the floor. She is given IV fluids throughout the night. She one episode of vomiting in the evening upon getting up too fast. This morning she try to sip water and threw up again. Overnight her vital signs were stable. This morning on exam the patient felt better overall. She still had some residual nausea but it was much improved. Her diet was advanced and she was able to tolerate clears and some solid food. She was given IV Zosyn during her stay because during the EGD portion of my case the patient had aspirated oral secretions. This morning her respirations were clear and she was showing no signs of aspiration pneumonitis. This patient was ambulatory and her nausea symptoms were adequately controlled with oral Reglan and Zofran. The patient was started on cholestyramine as a way to bind the bile acids to help with her bile reflux gastritis. The patient was able to tolerate about half of the medication dose before becoming nauseated again. She was sent home with a scopolamine patch, oral Zofran, scheduled oral Reglan, a 5 day treatment course of Levaquin, and oral cholestyramine. - Discharge Data Discharge Date: 09/16/16 Discharge Disposition: Home, Self-Care 01 Condition: Good - Discharge Diagnosis/Problem(s) (1) Hiatal hernia SNOMED Code(s): 14666115 ICD Code: K44.9 - DIAPHRAGMATIC HERNIA WITHOUT OBSTRUCTION OR GANGRENE Status: Acute (2) Gastritis, bile acid reflux SNOMED Code(s): 63050298, 73206790 ICD Code: K29.60 - OTHER GASTRITIS WITHOUT BLEEDING Status: Acute (3) Intractable nausea and vomiting SNOMED Code(s): 573625503, 626798171 ICD Code: R11.2 - NAUSEA WITH VOMITING, UNSPECIFIED Status: Acute - Patient Summary/Data Operative Procedure(s) Performed: EGD and colonoscopy - Patient Instructions Diet: Usual Diet as Tolerated Activity: As Tolerated Driving: Do Not Drive Showering/Bathing: May Shower Notify Provider of: Fever, Increased Pain, Nausea and/or Vomiting Other/Special Instructions: You have a return appointment with Dr. Neri on September 28 at 10:30am Central Time. - Discharge Plan Prescriptions/Med Rec: Cholestyramine/Sucrose [Cholestyramine Packet] 4 gm PO BID #30 packet Levofloxacin 750 mg PO DAILY #5 tablet Metoclopramide [Reglan] 10 mg PO Q6H #40 tablet Ondansetron [Zofran ODT] 4 mg PO Q6H #30 tab.dis Pantoprazole [ProTONIX] 40 mg PO ACBREAKFAST #60 tab.cr Scopolamine [Transderm-Scop] 1.5 mg TRDERM Q72H PRN #6 patch PRN Reason: Nausea Home Medications: Home Meds Multivitamin [Multivitamins] 1 tab PO DAILY 09/10/16 [History] Levofloxacin 750 mg PO DAILY #5 tablet 09/15/16 [Rx] Pantoprazole [ProTONIX] 40 mg PO ACBREAKFAST #60 tab.cr 09/15/16 [Rx] Cholestyramine/Sucrose [Cholestyramine Packet] 4 gm PO BID #30 packet 09/16/16 [ Rx] Metoclopramide [Reglan] 10 mg PO Q6H #40 tablet 09/16/16 [Rx] Ondansetron [Zofran ODT] 4 mg PO Q6H #30 tab.dis 09/16/16 [Rx] Scopolamine [Transderm-Scop] 1.5 mg TRDERM Q72H PRN #6 patch 09/16/16 [Rx] Patient Handouts: Gastritis, Adult, [id number], Esophagogastroduodenoscopy, Colonoscopy, Care After, [id number], Nausea and Vomiting, Adult, Sucralfate tablets, Pantoprazole tablets, Levofloxacin tablets Referrals: Bridget Neri MD [Physician] - 09/28/16 10:30 am - General Info Date of Service: 09/16/16 Functional Status: Reports: pain controlled, tolerating diet, ambulating - Review of Systems General: Reports: No Symptoms, Appetite (improving) Pulmonary: Reports: no symptoms Cardiovascular: Reports: No Symptoms Gastrointestinal: Reports: No symptoms - Patient Data Vitals - Most Recent: Last Vital Signs Temp 36.6 C 09/16/16 08:00 Pulse 49 L 09/16/16 09:00 Resp 20 09/16/16 08:00 BP 108/66 09/16/16 09:00 Pulse Ox 100 09/16/16 09:00 Weight - Most Recent: 60.781 kg I&O - Last 24 hours: Intake & Output 09/16/16 09/16/16 09/16/16 06:59 14:59 22:59 Intake Total 1110 50 Output Total 670 Balance 440 50 Lab Results - Last 24 hrs: Laboratory Results - last 24 hr 09/15/16 09/15/16 09/15/16 Range/Units 16:08 16:08 16:08 WBC 10.21 (4.0-11.0) K/uL RBC 4.25 L (4.30-5.90) M/uL Hgb 13.0 (12.0-16.0) g/dL Hct 38.0 (36.0-46.0) % MCV 89.4 (80.0-98.0) fL MCH 30.6 (27.0-32.0) pg MCHC 34.2 (31.0-37.0) g/dL RDW Std Deviation 43.9 (28.0-62.0) fl RDW Coeff of Afshan 13 (11.0-15.0) % Plt Count 245 (150-400) K/uL MPV 9.50 (7.40-12.00) fL Neut % (Auto) 81.3 H (48.0-80.0) % Lymph % (Auto) 12.4 L (16.0-40.0) % [place] % (Auto) 5.9 (0.0-15.0) % Eos % (Auto) 0.2 (0.0-7.0) % Baso % (Auto) 0.2 (0.0-1.5) % Neut # (Auto) 8.3 H (1.4-5.7) K/uL Lymph # (Auto) 1.3 (0.6-2.4) K/uL [place] # (Auto) 0.6 (0.0-0.8) K/uL Eos # (Auto) 0.0 (0.0-0.7) K/uL Baso # (Auto) 0.0 (0.0-0.1) K/uL Nucleated RBC % 0.0 /100WBC Nucleated RBCs # 0 K/uL Sodium 141 (136-146) mmol/L Potassium 3.5 (3.5-5.1) mmol/L Chloride 110 (98-110) mmol/L Carbon Dioxide 21 (21-31) mmol/L BUN 4 L (6.0-23.0) mg/dL Creatinine 0.8 (0.6-1.5) mg/dL Est Cr Clr Drug Dosing 82.74 mL/min Estimated GFR (MDRD) > 60.0 ml/min Glucose 122 H (60-110) mg/dL Calcium 8.7 L (8.8-10.8) mg/dL H. pylori IgG Antibody NEGATIVE (NEG) Med Orders - Current: Current Medications Discontinued Medications Acetaminophen (Tylenol) 650 mg RECTAL Q6H PRN PRN Reason: Pain (mild 1-3) Albuterol/Ipratropium (Duoneb 3.0-0.5 Mg/3 Ml) 3 ml NEB ONETIME ONE Stop: 09/15/16 09:02 Last Admin: 09/15/16 09:19 Dose: 3 ml Cholestyramine Resin (Cholestyramine Light) 4 gm PO BID DAVID Last Admin: 09/16/16 09:25 Dose: 4 gm Hydromorphone HCl (Dilaudid) 0.5 mg IVPUSH ONETIME ONE Stop: 09/15/16 15:00 Last Admin: 09/15/16 15:20 Dose: 0.5 mg Hydromorphone HCl (Dilaudid) 0.5 mg IVPUSH Q1H PRN PRN Reason: Pain (severe 7-10) Lactated Ringer's (Ringers, Lactated) 1,000 mls @ 125 mls/hr IV ASDIRECTED [facility] Last Admin: 09/16/16 02:26 Dose: 125 mls/hr Lactated Ringer's (Ringers, Lactated) 1,000 mls @ 1,000 mls/hr IV .BOLUS ONE Stop: 09/15/16 15:28 Last Admin: 09/15/16 14:45 Dose: 1,000 mls/hr Pantoprazole Sodium 40 mg/ (Sodium Chloride) 10 mls @ 5 mls/min IVPUSH DAILY [facility] Last Admin: 09/16/16 08:29 Dose: 5 mls/min Piperacillin Sod/Tazobactam (Sod 3.375 gm/ Sodium Chloride) 50 mls @ 100 mls/ hr IV Q8H [facility] Last Admin: 09/16/16 06:42 Dose: 100 mls/hr Lidocaine (Xylocaine-Mpf 2%) Confirm Administered Dose 5 ml .ROUTE .STK-MED ONE Stop: 09/15/16 07:26 Lorazepam (Ativan) 0.25 mg IVPUSH ONETIME ONE Stop: 09/15/16 15:00 Last Admin: 09/15/16 15:30 Dose: 0.25 mg Metoclopramide HCl (Reglan) 10 mg PO ONETIME ONE Stop: 09/15/16 13:40 Last Admin: 09/15/16 19:22 Dose: Not Given Metoclopramide HCl (Reglan) 10 mg IV Q6H PRN PRN Reason: Nausea Last Admin: 09/16/16 02:27 Dose: 10 mg Metoclopramide HCl (Reglan) 10 mg PO Q6H [facility] Last Admin: 09/16/16 08:03 Dose: 10 mg Ondansetron HCl (Zofran) 4 mg IVPUSH Q6H PRN PRN Reason: Nausea/Vomiting Last Admin: 09/16/16 02:27 Dose: 4 mg Ondansetron HCl (Zofran) 4 mg IVPUSH ONETIME ONE Stop: 09/15/16 14:30 Last Admin: 09/15/16 15:03 Dose: 4 mg Promethazine HCl (Phenergan) 25 mg IM ONETIME ONE Stop: 09/15/16 14:29 Last Admin: 09/15/16 15:02 Dose: 25 mg Promethazine HCl (Phenergan) 25 mg IM Q6H PRN PRN Reason: Nausea Propofol (Diprivan 20 Ml) Confirm Administered Dose 400 mg .ROUTE .STK-MED ONE Stop: 09/15/16 07:26 Propofol (Diprivan 20 Ml) Confirm Administered Dose 200 mg .ROUTE .STK-MED ONE Stop: 09/15/16 08:35 Scopolamine (Transderm-Scop) 1.5 mg TRDERM Q72H PRN PRN Reason: Nausea/Vomiting Last Admin: 09/15/16 13:57 Dose: 1.5 mg Sodium Chloride (Saline Flush) 10 ml FLUSH ASDIRECTED PRN PRN Reason: Keep Vein Open Sodium Chloride (Saline Flush) 2.5 ml FLUSH ASDIRECTED PRN PRN Reason: Keep Vein Open - Exam General: Reports: alert, oriented HEENT: Reports: Pupils equal, Pupils reactive Neck: Reports: supple Lungs: Reports: Normal respiratory effort Cardiovascular: Reports: Regular Rate Abdomen: Reports: soft, no tenderness, no distension Extremities: Reports: no edema Skin: Reports: warm, dry, intact *Q Meaningful Use (DIS) - VTE *Q VTE Criteria *Q: - Stroke *Q Stroke Criteria *Q: - AMI *Q AMI Criteria *Q:
== END 2016-09-16 11:53 | disposition home or self-care (01) ==
LOC: MW.SDS 07:20 → MW.MS 15:27
PROVIDERS: ADMIT Surgery; ATTEND Surgery
PROC: 0DB68ZX Excision of Stomach, Via Natural or Artificial Opening Endoscopic, Diagnostic (ICD-10-PCS; principal; 2016-09-15)
PROC: 0DBN8ZZ Excision of Sigmoid Colon, Via Natural or Artificial Opening Endoscopic (ICD-10-PCS; 2016-09-15)
DX: K29.50 Unspecified chronic gastritis without bleeding (principal); K63.5 Polyp of colon; K44.9 Diaphragmatic hernia without obstruction or gangrene; K21.9 Gastro-esophageal reflux disease without esophagitis; F17.210 Nicotine dependence, cigarettes, uncomplicated; Z90.49 Acquired absence of other specified parts of digestive tract; Z98.890 Other specified postprocedural states; Z79.899 Other long term (current) drug therapy
CPT/HCPCS: 36415; 43239; 45380; 80048; 81025; 85025; 86677; 88305; 88312; 94664; 96361; 96365; 96366; 96375; 96376; A9270; C9113; G0378; J1170; J2060; J2405; J2543; J2550; J2765; J7050; J7120; 00740; J2704

== ENCOUNTER 2017-05-09 13:13 | Emergency (ER) | payer BC ==
[2017-05-09] MEDS ORDERED: Sodium Chloride 0.9% 1,000 ML IV ONE (13:31)
[2017-05-09] MEDS ORDERED: Pantoprazole 40 MG Vial IVPUSH ONE (13:31)
[2017-05-09] MEDS ORDERED: Ondansetron 4 MG/2 ML SDV IVPUSH ONE ×2 (13:31→15:00)
[2017-05-09] MEDS ORDERED: Alum Hydrox/Mag Hydrox/Simeth 15 ML, Metoclopramide 5 MG, Lidocaine 2% 5 ML PO ONE ×3 (13:32)
--- NOTE | 2017-05-09 13:34 | EDM.PDOC ---
ED HPI GENERAL MEDICAL PROBLEM - General Chief Complaint: Gastrointestinal Problem Stated Complaint: VOMITING Time Seen by Provider: 05/09/17 13:29 - History of Present Illness INITIAL COMMENTS - FREE TEXT/NARRATIVE: HISTORY AND PHYSICAL: History of present illness: Patient 36-year-old female past history gastroesophageal reflux disease who is on no current medicines or sensory concern of exacerbation of her reflux since Tuesday with intermittent nausea and vomiting she denies abdominal pain. This been no fever chills nausea vomiting no diarrhea no vaginal discharge or irregular bleeding or urinary symptoms Review of systems: As per history of present illness and below otherwise all systems reviewed and negative. Past medical history: As per history of present illness and as reviewed below otherwise noncontributory. Surgical history: As per history of present illness and as reviewed below otherwise noncontributory. Social history: No reported history of drug or alcohol abuse. Family history: As per history of present illness and as reviewed below otherwise noncontributory. Physical exam: HEENT: Atraumatic, normocephalic, pupils reactive, negative for conjunctival pallor or scleral icterus, mucous membranes dry, throat clear, neck supple, nontender, trachea midline. Lungs: Clear to auscultation, breath sounds equal bilaterally, chest nontender. Heart: S1S2, regular, negative for clicks, rubs, or JVD. Abdomen: Soft, nondistended, nontender. Negative for masses or hepatosplenomegaly. Negative for costovertebral tenderness. Pelvis: Stable nontender. Genitourinary: Deferred. Rectal: Deferred. Extremities: Atraumatic, negative for cords or calf pain. Neurovascular unremarkable. Neuro: Awake, alert, oriented. Cranial nerves II through XII unremarkable. Cerebellum unremarkable. Motor and sensory unremarkable throughout. Exam nonfocal. Diagnostics: CBC CMP lipase hCG Therapeutics: Daily 1 L bolus Zofran 4 mg IV GI cocktail Protonix 80 mg IV Impression: #1 gastroesophageal reflux disease Definitive disposition and diagnosis as appropriate pending reevaluation and review of above. 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: Psychiatric History: - Infectious Disease History Infectious Disease History: Reports: Chicken Pox - Past Surgical History Head Surgeries/Procedures: Reports: None GI Surgical History: Reports: Cholecystectomy, Other (See Below) Other GI Surgeries/Procedures: laparoscopy Female Surgical History: Reports: Section Social & Family History - Family History Family Medical History: Noncontributory - Tobacco Use Smoking Status *Q: Current Every Day Smoker Years of Tobacco use: 15 Packs/Tins Daily: 0.5 - Caffeine Use Caffeine Use: Reports: Coffee Caffeine Use Comment: 1-3 daily - Alcohol Use Days Per Week of Alcohol Use: 0 - Recreational Drug Use Recreational Drug Use: No Drug Use in Last 12 Months: No ED ROS GENERAL - Review of Systems Review Of Systems: ROS reveals no pertinent complaints other than HPI. ED EXAM, GENERAL - Physical Exam Exam: See Below (The dictation) Course - Vital Signs Last Recorded V/S: Last Vital Signs Temp 36.3 C 05/09/17 13:32 Pulse 101 H 05/09/17 13:32 Resp 18 05/09/17 13:32 BP 138/110 H 05/09/17 13:32 Pulse Ox 98 05/09/17 13:32 - Orders/Labs/Meds Labs: Laboratory Tests 05/09/17 05/09/17 05/09/17 Range/Units 13:43 13:43 13:43 WBC 6.47 (4.0-11.0) K/uL RBC 5.05 (4.30-5.90) M/uL Hgb 16.0 (12.0-16.0) g/dL Hct 44.2 (36.0-46.0) % MCV 87.5 (80.0-98.0) fL MCH 31.7 (27.0-32.0) pg MCHC 36.2 (31.0-37.0) g/dL RDW Std Deviation 41.6 (28.0-62.0) fl RDW Coeff of Afshan 13 (11.0-15.0) % Plt Count 244 (150-400) K/uL MPV 10.10 (7.40-12.00) fL Neut % (Auto) 71.6 (48.0-80.0) % Lymph % (Auto) 15.9 L (16.0-40.0) % [place] % (Auto) 12.5 (0.0-15.0) % Eos % (Auto) 0.0 (0.0-7.0) % Baso % (Auto) 0.0 (0.0-1.5) % Neut # (Auto) 4.6 (1.4-5.7) K/uL Lymph # (Auto) 1.0 (0.6-2.4) K/uL [place] # (Auto) 0.8 (0.0-0.8) K/uL Eos # (Auto) 0.0 (0.0-0.7) K/uL Baso # (Auto) 0.0 (0.0-0.1) K/uL Nucleated RBC % 0.0 /100WBC Nucleated RBCs # 0 K/uL Sodium 139 (136-146) mmol/L Potassium 3.4 L (3.5-5.1) mmol/L Chloride 107 (98-110) mmol/L Carbon Dioxide 17 L (21-31) mmol/L BUN 19 (6.0-23.0) mg/dL Creatinine 1.2 (0.6-1.5) mg/dL Est Cr Clr Drug Dosing 54.64 mL/min Estimated GFR (MDRD) 51.4 ml/min Glucose 157 H (60-110) mg/dL Calcium 10.4 (8.8-10.8) mg/dL Total Bilirubin 0.2 (0.1-1.5) mg/dL AST 25 (5-40) IU/L ALT 30 (8-54) IU/L Alkaline Phosphatase 63 (40-150) Total Protein 8.5 H (6.0-8.0) g/dL Albumin 4.7 (3.5-5.0) g/dL Globulin 3.8 H (2.0-3.5) g/dL Albumin/Globulin Ratio 1.2 L (1.3-2.8) Lipase 16 (7-80) U/L HCG, Qual NEGATIVE (NEG) Meds: Medications Discontinued Medications Generic Name Dose Route Start Last Admin Trade Name Soumya PRN Reason Stop Dose Admin Al Hydroxide/Mg Hydroxide 15 0 ml 05/09/17 13:32 05/09/17 13:55 ml/ Metoclopramide HCl 5 mg/ PO 05/09/17 13:33 25 each Lidocaine HCl 5 ml ONETIME ONE Administration Sodium Chloride 1,000 mls @ 999 mls/hr 05/09/17 13:31 05/09/17 13:56 Normal Saline IV 05/09/17 14:31 999 mls/hr STAT ONE Administration Ondansetron HCl 4 mg 05/09/17 13:31 05/09/17 13:55 Zofran IVPUSH 05/09/17 13:32 4 mg ONETIME ONE Administration Ondansetron HCl 4 mg 05/09/17 15:00 05/09/17 15:04 Zofran IVPUSH 05/09/17 15:01 4 mg ONETIME ONE Administration Pantoprazole Sodium 80 mg 05/09/17 13:31 05/09/17 13:55 Protonix Iv IVPUSH 05/09/17 13:32 80 mg .BOLUS ONE Administration Departure - Departure Time of Disposition: 15:14 Disposition: Home, Self-Care 01 Condition: Good Clinical Impression: GERD (gastroesophageal reflux disease) - Discharge Information Referrals: Mike Loomis MD [Primary Care Provider] - Forms: ED Department Discharge Additional Instructions: The following information is given to patients seen in the emergency department who are being discharged to home. This information is to outline your options for follow-up care. We provide all patients seen in our emergency department with a follow-up referral. The need for follow-up, as well as the timing and circumstances, are variable depending upon the specifics of your emergency department visit. If you don't have a primary care physician on staff, we will provide you with a referral. We always advise you to contact your personal physician following an emergency department visit to inform them of the circumstance of the visit and for follow-up with them and/or the need for any referrals to a consulting specialist. The emergency department will also refer you to a specialist when appropriate. This referral assures that you have the opportunity for followup care with a specialist. All of these measure are taken in an effort to provide you with optimal care, which includes your followup. Under all circumstances we always encourage you to contact your private physician who remains a resource for coordinating your care. When calling for followup care, please make the office aware that this follow-up is from your recent emergency room visit. If for any reason you are refused follow-up, please contact the [facility] emergency department at and asked to speak to the emergency department charge nurse. [facility] - General Surgery Professional Building [address] [place] [address], [address] [place] [address] Protonix as prescribed follow-up primary medical doctor and general surgery as discussed return as needed as discussed
[2017-05-09 20:29] VITALS: BP 138/85
== END 2017-05-09 15:37 | disposition home or self-care (01) ==
LOC: MW.ED 13:13
DX: K21.9 Gastro-esophageal reflux disease without esophagitis (principal); F17.210 Nicotine dependence, cigarettes, uncomplicated; Z79.2 Long term (current) use of antibiotics
CPT/HCPCS: 36415; 80053; 83690; 84703; 85025; 96361; 96374; 96375; 96376; 99284; A9270; C9113; J2405; J7040; 99283

== ENCOUNTER 2017-05-10 17:16 | Emergency (ER) | payer BC ==
[2017-05-10] MEDS ORDERED: Ondansetron 4 MG/2 ML SDV IVPUSH ONE (17:27)
[2017-05-10] MEDS ORDERED: Sodium Chloride 0.9% 500 ML IV SCH (17:30)
--- NOTE | 2017-05-10 17:47 | EDM.PDOC ---
ED HPI GENERAL MEDICAL PROBLEM - General Chief Complaint: Gastrointestinal Problem Stated Complaint: VOMITING/NAUSEA Time Seen by Provider: 05/10/17 17:47 Source of Information: Reports: Patient - History of Present Illness INITIAL COMMENTS - FREE TEXT/NARRATIVE: HISTORY AND PHYSICAL: History of present illness: [Patient presents with nausea vomiting over the last several days, she was seen yesterday with complete lab evaluation she declines further lab per further Zofran, states she simply tired of nausea over the last few years she has weaned herself off many foods mostly greasy and fried foods, she has had her gallbladder out previously. She notes that she has had these symptoms off and on for years She states she has abdominal pain however pain is 1 out of 10 she elicits no pain behavior hAs a normal physical exam] No fever chills sweats no chest pain shortness breath headache dizziness or palpitation no urine symptoms Patient has been doing some Internet searching she is convinced she has pyloric stenosis E Dr. Mo's note and detailed lab from yesterday Review of systems: As per history of present illness and below otherwise all systems reviewed and negative. Past medical history: As per history of present illness and as reviewed below otherwise noncontributory. Surgical history: As per history of present illness and as reviewed below otherwise noncontributory. Social history: No reported history of drug or alcohol abuse. Family history: As per history of present illness and as reviewed below otherwise noncontributory. Physical exam: HEENT: Atraumatic, normocephalic, pupils reactive, negative for conjunctival pallor or scleral icterus, mucous membranes moist, throat clear, neck supple, nontender, trachea midline. Lungs: Clear to auscultation, breath sounds equal bilaterally, chest nontender. Heart: S1S2, regular, negative for clicks, rubs, or JVD. Abdomen: Soft, nondistended, nontender. Negative for masses or hepatosplenomegaly. Negative for costovertebral tenderness. Pelvis: Stable nontender. Genitourinary: Deferred. Rectal: Deferred. Extremities: Atraumatic, negative for cords or calf pain. Neurovascular unremarkable. Neuro: Awake, alert, oriented. Cranial nerves II through XII unremarkable. Cerebellum unremarkable. Motor and sensory unremarkable throughout. Exam nonfocal. Diagnostics: [Flat and upright abdomen] patient refused Negative hCG on chart from yesterday patient declined repeat lab today Therapeutics: [Continue Zofran as needed Continue proton X Phenergan 25 mg by mouth every 6 when necessary #30 no refill provided Phenergan 25 mg IM now ] Impression: [Gastroesophageal reflux Nausea vomiting] Definitive disposition and diagnosis as appropriate pending reevaluation and review of above. abdomen\\ Pain Score (Numeric/FACES): 6 - Related Data Allergies Allergy/AdvReac Type Severity Reaction Status Date / Time No Known Allergies Allergy Verified 05/10/17 17:26 Home Meds: Home Meds Levofloxacin 750 mg PO DAILY #5 tablet 09/15/16 [Rx] Cholestyramine/Sucrose [Cholestyramine Packet] 4 gm PO BID #30 packet 09/16/16 [ Rx] Metoclopramide [Reglan] 10 mg PO Q6H #40 tablet 09/16/16 [Rx] Ondansetron [Zofran ODT] 4 mg PO Q6H #30 tab.dis 09/16/16 [Rx] Past Medical History HEENT History: Reports: None Cardiovascular History: Reports: None Respiratory History: Reports: None Gastrointestinal History: Reports: GERD, Other (See Below) Other Gastrointestinal History: "bile reflux" Genitourinary History: Reports: None [employer]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: Musculoskeletal History: Reports: None Psychiatric History: Reports: None Endocrine/Metabolic History: Reports: None Hematologic History: Reports: None Immunologic History: Reports: None Oncologic (Cancer) History: Reports: None Dermatologic History: Reports: None - Infectious Disease History Infectious Disease History: Reports: Chicken Pox - Past Surgical History Head Surgeries/Procedures: Reports: None HEENT Surgical History: Reports: None Cardiovascular Surgical History: Reports: None Respiratory Surgical History: Reports: None GI Surgical History: Reports: Cholecystectomy, Other (See Below) Other GI Surgeries/Procedures: laparoscopy Female Surgical History: Reports: Section Endocrine Surgical History: Reports: None Neurological Surgical History: Reports: None Musculoskeletal Surgical History: Reports: None Oncologic Surgical History: Reports: None Dermatological Surgical History: Reports: None Social & Family History - Family History Family Medical History: Noncontributory - Tobacco Use Smoking Status *Q: Current Every Day Smoker Years of Tobacco use: 15 Packs/Tins Daily: 0.5 Second Hand Smoke Exposure: No - Caffeine Use Caffeine Use: Reports: None Caffeine Use Comment: 1-3 daily - Alcohol Use Days Per Week of Alcohol Use: 0 - Recreational Drug Use Recreational Drug Use: No Drug Use in Last 12 Months: No ED ROS GENERAL - Review of Systems Review Of Systems: ROS reveals no pertinent complaints other than HPI. ED EXAM, GENERAL - Physical Exam Exam: See Below Course - Vital Signs Last Recorded V/S: Last Vital Signs Temp 95.8 F 05/10/17 17:30 Pulse 85 05/10/17 17:30 Resp 18 05/10/17 17:30 BP 133/76 05/10/17 17:30 Pulse Ox 97 05/10/17 17:30 - Orders/Labs/Meds Orders: Active Orders 24 hr Category Date Time Status Abdomen 2V AP Flat Upright [CR] Stat Exams 05/10/17 17:47 Stop Req Promethazine [Phenergan] Med 05/10/17 18:39 Once 25 mg IM ONETIME ONE Meds: Medications Discontinued Medications Generic Name Dose Route Start Last Admin Trade Name Freq PRN Reason Stop Dose Admin Sodium Chloride 500 mls @ 999 mls/hr 05/10/17 17:30 Normal Saline IV STAT DAVID Ondansetron HCl 8 mg 05/10/17 17:27 Zofran IVPUSH 05/10/17 17:28 ONETIME ONE Departure - Departure Time of Disposition: 18:39 Disposition: Home, Self-Care 01 Condition: Good Clinical Impression: Vomiting, GERD (gastroesophageal reflux disease) - Discharge Information Referrals: PCP,None [Primary Care Provider] - Forms: ED Department Discharge Additional Instructions: Medication as prescribed Return if symptoms persist or worsen Follow-up with primary care or general surgery for referral to GI specialist [address] [address] [facility] - General Surgery Professional Building [address] [place] [address], [address] [place] [address] The following information is given to patients seen in the emergency department who are being discharged to home. This information is to outline your options for follow-up care. We provide all patients seen in our emergency department with a follow-up referral. The need for follow-up, as well as the timing and circumstances, are variable depending upon the specifics of your emergency department visit. If you don't have a primary care physician on staff, we will provide you with a referral. We always advise you to contact your personal physician following an emergency department visit to inform them of the circumstance of the visit and for follow-up with them and/or the need for any referrals to a consulting specialist. The emergency department will also refer you to a specialist when appropriate. This referral assures that you have the opportunity for follow-up care with a specialist. All of these measure are taken in an effort to provide you with optimal care, which includes your follow-up. Under all circumstances we always encourage you to contact your private physician who remains a resource for coordinating your care. When calling for follow-up care, please make the office aware that this follow-up is from your recent emergency room visit. If for any reason you are refused follow-up, please contact the [facility] emergency department at and asked to speak to the emergency department charge nurse. - My Orders Last 24 Hours: My Active Orders 05/10/17 17:47 Abdomen 2V AP Flat Upright [CR] Stat 05/10/17 18:39 Promethazine [Phenergan] 25 mg IM ONETIME ONE - Assessment/Plan Last 24 Hours: My Active Orders 05/10/17 17:47 Abdomen 2V AP Flat Upright [CR] Stat 05/10/17 18:39 Promethazine [Phenergan] 25 mg IM ONETIME ONE
[2017-05-10] MEDS ORDERED: Promethazine 25 MG/ML SDV IM ONE (18:39)
[2017-05-10 19:23] VITALS: BP 129/83
== END 2017-05-10 19:10 | disposition home or self-care (01) ==
LOC: MW.ED 17:16
DX: K21.9 Gastro-esophageal reflux disease without esophagitis (principal); F17.210 Nicotine dependence, cigarettes, uncomplicated; Z79.2 Long term (current) use of antibiotics
CPT/HCPCS: 96372; 99283; J2550

== ENCOUNTER 2019-06-06 04:10 | Emergency (ER) | payer BC ==
[2019-06-06] MEDS ORDERED: Sodium Chloride 0.9% 1,000 ML IV ONE (04:16)
[2019-06-06] MEDS ORDERED: Ondansetron 4 MG/2 ML SDV IVPUSH ONE (04:42)
[2019-06-06] MEDS ORDERED: diphenhydrAMINE 50 MG/ML SDV IVPUSH ONE (04:43)
--- NOTE | 2019-06-06 04:50 | EDM.PDOC ---
ED HPI GENERAL MEDICAL PROBLEM - General Chief Complaint: Gastrointestinal Problem Stated Complaint: DEHYDRATED Time Seen by Provider: 06/06/19 04:13 Source of Information: Reports: Patient History Limitations: Reports: No Limitations - History of Present Illness INITIAL COMMENTS - FREE TEXT/NARRATIVE: HISTORY OF PRESENT ILLNESS: Patient is a 38-year-old female with history of cyclic vomiting syndrome, GERD status post cholecystectomy who presents to the ER for reports of vomiting for the past 3 days. States she has crampy abdominal pain which she rates as 4 out of 10 in severity. States the pain is actually been worse during prior episodes than it is presently. States she has been seen by multiple specialists for the same. Denies any fevers or chills. No chest pain or dyspnea. Denies any urinary symptoms. No diarrhea constipation. No melena hematochezia. Denies any hematemesis. States symptoms are similar in duration and character to prior episodes. Has not used any home antiemetics as she states they were all . REVIEW OF SYSTEMS: Other than the symptoms associated with the present events, the following is reported with regard to recent health: General: (-) fever. HENT: (-) congestion. Respiratory: (-) cough. Cardiovascular: (-) chest pain. GI: (+) abdominal pain. : (-) urinary complaints. Musculoskeletal: (-) other aches or pains. Endocrine: (-) generalized weakness. Neurological: (-) localized weakness. Skin: (-) rash PAST MEDICAL HISTORY: reviewed as per nursing notes SOCIAL HISTORY: reviewed as per nursing notes, MEDICATIONS: Per nurse's note ALLERGIES: Per nurse's note, reviewed by me PHYSICAL EXAMINATION: GENERALIZED APPEARANCE: well developed, well nourished in no distress VITAL SIGNS: Per nurse's note, reviewed by me SKIN: Warm, dry; (-) cyanosis; (-) rash. HEAD: (-) scalp swelling, (-) tenderness. EYES: (-) conjunctival pallor, (-) scleral icterus. ENMT: (-) stridor; mucous membranes moist. NECK: (-) tenderness, (-) stiffness, CHEST AND RESPIRATORY: (-) rales, (-) rhonchi, (-) wheezes; breath sounds equal bilaterally. HEART AND CARDIOVASCULAR: (-) irregularity; (-) murmur, (-) gallop. ABDOMEN AND GI: Soft; (-) tenderness, (-) guarding, (-) rebound, (-) palpable masses, no CVAT EXTREMITIES: (-) deformity, (-) edema. NEURO AND PSYCH: Alert. Cranial nerves grossly intact; strength symmetric. gait steady DIAGNOSTICS: Labs ordered and reviewed EMERGENCY DEPARTMENT COURSE AND TREATMENT: Patient's condition remained stable during Emergency Department evaluation. After history, physical exam, and diagnostic evaluation, the etiology for the patient's vomiting and crampy abdominal pain likely due to exacerbation of her cyclic vomiting sydrome. On serial examination, the abdomen remained soft without peritoneal signs. Laboratory data was non-diagnostic. Hypokalemia noted and replaced. After treatment, vomiting resolved and hydration status was satisfactory. Pt states she feels better and is requesting d/c to home. I think the patient is at low risk for significant abdominal pathology based on serial exams and ER evaluation. I felt that outpatient management with close followup by the patient 's primary care provider in 1-2 days was appropriate. The patient's questions were answered, and discharge precautions and reasons to return to the ER were discussed. PLAN AND FOLLOW-UP: Patient received written and verbal instructions regarding this condition. Return to ED immediately with any new or worsening symptoms. Follow up to be arranged by patient with pcp in 1-2 days for further evaluation. Given discharge precautions. patient expressed verbal understanding. 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: Musculoskeletal History: Reports: None Psychiatric History: Reports: None Endocrine/Metabolic History: Reports: None Hematologic History: Reports: None Immunologic History: Reports: None Oncologic (Cancer) History: Reports: None Dermatologic History: Reports: None - Infectious Disease History Infectious Disease History: Reports: Chicken Pox - Past Surgical History Head Surgeries/Procedures: Reports: None HEENT Surgical History: Reports: None Cardiovascular Surgical History: Reports: None Respiratory Surgical History: Reports: None GI Surgical History: Reports: Cholecystectomy, Other (See Below) Other GI Surgeries/Procedures: laparoscopy Female Surgical History: Reports: Section Endocrine Surgical History: Reports: None Neurological Surgical History: Reports: None Musculoskeletal Surgical History: Reports: None Oncologic Surgical History: Reports: None Dermatological Surgical History: Reports: None Social & Family History - Family History Family Medical History: Noncontributory - Tobacco Use Smoking Status *Q: Never Smoker - Caffeine Use Caffeine Use: Reports: None Caffeine Use Comment: 1-3 daily - Recreational Drug Use Recreational Drug Use: No ED ROS GENERAL - Review of Systems Review Of Systems: See Below (see dictation) ED EXAM, GENERAL - Physical Exam Exam: See Below (see dictation) Course - Vital Signs Last Recorded V/S: Last Vital Signs Temp 96.1 F L 06/06/19 04:21 Pulse 123 H 06/06/19 04:21 Resp 18 06/06/19 04:21 BP 111/81 06/06/19 04:21 Pulse Ox 94 L 06/06/19 04:21 - Orders/Labs/Meds Orders: Active Orders 24 hr Category Date Time Status DRUG SCREEN, URINE [URCHEM] Stat Lab 06/06/19 04:33 Ordered HCG QUALITATIVE,SERUM [CHEM] Stat Lab 06/06/19 05:51 Ordered HCG QUALITATIVE,URINE [URCHEM] Stat Lab 06/06/19 04:33 Ordered Labs: Laboratory Tests 06/06/19 06/06/19 Range/Units 04:25 04:25 WBC 11.52 H (4.0-11.0) K/uL RBC 5.46 (4.30-5.90) M/uL Hgb 17.5 H (12.0-16.0) g/dL Hct 49.5 H (36.0-46.0) % MCV 90.7 (80.0-98.0) fL MCH 32.1 H (27.0-32.0) pg MCHC 35.4 (31.0-37.0) g/dL RDW Std Deviation 43.4 (28.0-62.0) fl RDW Coeff of Afshan 13 (11.0-15.0) % Plt Count 314 (150-400) K/uL MPV 9.70 (7.40-12.00) fL Neut % (Auto) 74.9 (48.0-80.0) % Lymph % (Auto) 17.3 (16.0-40.0) % [place] % (Auto) 7.4 (0.0-15.0) % Eos % (Auto) 0.1 (0.0-7.0) % Baso % (Auto) 0.3 (0.0-1.5) % Neut # (Auto) 8.6 H (1.4-5.7) K/uL Lymph # (Auto) 2.0 (0.6-2.4) K/uL [place] # (Auto) 0.9 H (0.0-0.8) K/uL Eos # (Auto) 0.0 (0.0-0.7) K/uL Baso # (Auto) 0.0 (0.0-0.1) K/uL Nucleated RBC % 0.0 /100WBC Nucleated RBCs # 0 K/uL Sodium 140 (136-145) mmol/L Potassium 3.0 L (3.5-5.1) mmol/L Chloride 103 (98-107) mmol/L Carbon Dioxide 19.0 L (21.0-32.0) mmol/L BUN 21 H (7.0-18.0) mg/dL Creatinine 1.3 H (0.6-1.0) mg/dL Est Cr Clr Drug Dosing TNP Estimated GFR (MDRD) 46.3 ml/min Glucose 183 H (74-106) mg/dL Calcium 9.5 (8.5-10.1) mg/dL Total Bilirubin 0.3 (0.2-1.0) mg/dL AST 34 (15-37) IU/L ALT 42 (14-63) IU/L Alkaline Phosphatase 81 (46-116) U/L Total Protein 8.9 H (6.4-8.2) g/dL Albumin 4.3 (3.4-5.0) g/dL Globulin 4.6 H (2.6-4.0) g/dL Albumin/Globulin Ratio 0.9 (0.9-1.6) Lipase 75 (73-393) U/L Meds: Medications Discontinued Medications Generic Name Dose Route Start Last Admin Trade Name Freq PRN Reason Stop Dose Admin Diphenhydramine HCl 50 mg 06/06/19 04:43 06/06/19 04:49 Benadryl IVPUSH 06/06/19 04:44 50 mg ONETIME ONE Administration Haloperidol Lactate 5 mg 06/06/19 05:10 06/06/19 05:13 Haldol IM 06/06/19 05:11 5 mg ONETIME ONE Administration Haloperidol Lactate Confirm 06/06/19 05:11 Haldol Administered 06/06/19 05:12 Dose 5 mg .ROUTE .STK-MED ONE Sodium Chloride 1,000 mls @ 1,000 mls/hr 06/06/19 04:16 06/06/19 04:46 Normal Saline IV 06/06/19 05:15 1,000 mls/hr .Bolus ONE Administration Ondansetron HCl 4 mg 06/06/19 04:42 06/06/19 04:49 Zofran IVPUSH 06/06/19 04:43 4 mg ONETIME ONE Administration Potassium Chloride 40 meq 06/06/19 05:47 Klor-Con M20 PO 06/06/19 05:48 ONETIME ONE Departure - Departure Time of Disposition: 05:51 Disposition: Home, Self-Care 01 Condition: Good Clinical Impression: Cyclic vomiting syndrome - Discharge Information *PRESCRIPTION DRUG MONITORING PROGRAM REVIEWED*: Not Applicable *COPY OF PRESCRIPTION DRUG MONITORING REPORT IN PATIENT MELIZA: Not Applicable Instructions: Vomiting, Adult, Cyclic Vomiting Syndrome, Adult Referrals: Mike Loomis MD [Primary Care Provider] - 1 Day Forms: ED Department Discharge Additional Instructions: The following information is given to patients seen in the emergency department who are being discharged to home. This information is to outline your options for follow-up care. We provide all patients seen in our emergency department with a follow-up referral. The need for follow-up, as well as the timing and circumstances, are variable depending upon the specifics of your emergency department visit. If you don't have a primary care physician on staff, we will provide you with a referral. We always advise you to contact your personal physician following an emergency department visit to inform them of the circumstance of the visit and for follow-up with them and/or the need for any referrals to a consulting specialist. The emergency department will also refer you to a specialist when appropriate. This referral assures that you have the opportunity for follow-up care with a specialist. All of these measure are taken in an effort to provide you with optimal care, which includes your follow-up. Under all circumstances we always encourage you to contact your private physician who remains a resource for coordinating your care. When calling for follow-up care, please make the office aware that this follow-up is from your recent emergency room visit. If for any reason you are refused follow-up, please contact the [facility] Emergency Department at and asked to speak to the emergency department charge nurse. Sepsis Event Note - Evaluation Sepsis Screening Result: No Definite Risk - Focused Exam Vital Signs: Vital Signs Temp Pulse Resp BP Pulse Ox 06/06/19 04:21 96.1 F L 123 H 18 111/81 94 L Date Exam was Performed: 06/06/19 Time Exam was Performed: 05:51 - My Orders Last 24 Hours: My Active Orders 06/06/19 04:33 DRUG SCREEN, URINE [URCHEM] Stat HCG QUALITATIVE,URINE [URCHEM] Stat 06/06/19 05:51 HCG QUALITATIVE,SERUM [CHEM] Stat - Assessment/Plan Last 24 Hours: My Active Orders 06/06/19 04:33 DRUG SCREEN, URINE [URCHEM] Stat HCG QUALITATIVE,URINE [URCHEM] Stat 06/06/19 05:51 HCG QUALITATIVE,SERUM [CHEM] Stat
[2019-06-06 04:51] LABS: BLOOD UREA NITROGEN,BUN 21 mg/dL (7.0-18.0); CHLORIDE,CL 103 mmol/L (98-107); GLUCOSE RANDOM 183 mg/dL (74-106); LIPASE 75 U/L (73-393); SODIUM,NA 140 mmol/L (136-145)
[2019-06-06] MEDS ORDERED: Haloperidol Lactate 5 MG/ML SDV IM ONE (05:10)
[2019-06-06] MEDS ORDERED: Haloperidol Lactate 5 MG/ML SDV ONE (05:11)
[2019-06-06] MEDS ORDERED: Potassium Chloride 20 MEQ Tab.ER PO ONE (05:47)
[2019-06-06 06:05] VITALS: BP 102/73; PULSE 82
== END 2019-06-06 06:02 | disposition home or self-care (01) ==
LOC: MW.ED 04:10
DX: R11.15 Cyclical vomiting syndrome unrelated to migraine (principal); Z90.49 Acquired absence of other specified parts of digestive tract
CPT/HCPCS: 36415; 80053; 83690; 84703; 85025; 96361; 96372; 96374; 96375; 99284; A9270; J1200; J1630; J2405; J7030; 99283

== ENCOUNTER 2019-06-08 15:41 | Emergency (ER) | payer BC ==
--- NOTE | 2019-06-08 16:10 | EDM.PDOC ---
ED HPI GENERAL MEDICAL PROBLEM - General Stated Complaint: VOMITING Time Seen by Provider: 06/08/19 15:46 Source of Information: Reports: Patient History Limitations: Reports: No Limitations - History of Present Illness INITIAL COMMENTS - FREE TEXT/NARRATIVE: HISTORY AND PHYSICAL: History of present illness: Patient is a 38-year-old female who presents to the ED today with concern of vomiting. Patient states she has a history of cyclic vomiting, GERD status post cholecystectomy. Patient states she has been seen by multiple specialist for the same symptoms that she presents with today. Patient states she has been vomiting for the past 5 days and was evaluated in the ED 2 days ago. Patient states that she has been able to keep fluids down but if she tries to eat anything of more substance other than water her stomach turns and she vomits. Patient states she last threw up 2 to 3 hours ago. Patient states this is typical of her cyclic vomiting episodes and feels as of the medication at her last ED visit was not strong enough to get her out of the cycle. Patient denies any abdominal pain at this time. Patient denies any other symptoms or concerns. Patient denies fever, chills, chest pain, shortness of breath, or cough. Denies headache, neck stiff ness, change in vision, syncope, or near syncope. Denies abdominal pain, diarrhea, constipation, or dysuria. Has not noted any blood in urine or stool. Patient has been eating and drinking appropriately. Review of systems: As per history of present illness and below otherwise all systems reviewed and negative. Past medical history: As per history of present illness and as reviewed below otherwise noncontributory. Surgical history: As per history of present illness and as reviewed below otherwise noncontributory. Social history: See social history for further information Family history: As per history of present illness and as reviewed below otherwise noncontributory. Physical exam: General: Patient is alert, oriented, and in no acute distress. Patient sitting comfortably on exam table. HEENT: Atraumatic, normocephalic, pupils equal and reactive bilaterally, negative for conjunctival pallor or scleral icterus, mucous membranes moist, TMs normal bilaterally, throat clear, neck supple, nontender, trachea midline. No drooling or trismus noted. No meningeal signs. No hot potato voice noted. Lungs: Clear to auscultation, breath sounds equal bilaterally, chest nontender. Heart: S1S2, regular rate and rhythm without overt murmur Abdomen: Soft, nondistended, nontender. Negative for masses or hepatosplenomegaly. Negative for costovertebral tenderness. Pelvis: Stable nontender. Genitourinary: Deferred. Rectal: Deferred. Skin: Intact, warm, dry. No lesions or rashes noted. Extremities: Atraumatic, negative for cords or calf pain. Neurovascular unremarkable. Neuro: Awake, alert, oriented. Cranial nerves II through XII unremarkable. Cerebellum unremarkable. Motor and sensory unremarkable throughout. Exam nonfocal. Notes: Serial abdominal exams, abdomen remained soft, non tender. Patient did not have any episodes of vomiting today in the ED and was able to tolerate p.o. intake of fluids without vomiting. Discussed importance for follow-up with a primary care provider. Voices understanding and is agreeable to plan of care. Denies any further questions or concerns at this time. Diagnostics: CBC, CMP, UA, Uhcg, Lipase Therapeutics: NS, Zofran, Benadryl, Reglan Prescription: Zofran Impression: Cyclical vomiting syndrome H/O vomiting Plan: 1. Take medication as prescribed. Encourage small but frequent sips of fluid to prevent dehydration. 2. Follow-up with your primary care provider as discussed. Return to the ED as needed and as discussed. Definitive disposition and diagnosis as appropriate pending reevaluation and review of above. 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: Musculoskeletal History: Reports: None Psychiatric History: Reports: None Endocrine/Metabolic History: Reports: None Hematologic History: Reports: None Immunologic History: Reports: None Oncologic (Cancer) History: Reports: None Dermatologic History: Reports: None - Infectious Disease History Infectious Disease History: Reports: Chicken Pox - Past Surgical History Head Surgeries/Procedures: Reports: None HEENT Surgical History: Reports: None Cardiovascular Surgical History: Reports: None Respiratory Surgical History: Reports: None GI Surgical History: Reports: Cholecystectomy, Other (See Below) Other GI Surgeries/Procedures: laparoscopy Female Surgical History: Reports: Section Endocrine Surgical History: Reports: None Neurological Surgical History: Reports: None Musculoskeletal Surgical History: Reports: None Oncologic Surgical History: Reports: None Dermatological Surgical History: Reports: None Social & Family History - Family History Family Medical History: Noncontributory - Caffeine Use Caffeine Use: Reports: None Caffeine Use Comment: 1-3 daily ED ROS GENERAL - Review of Systems Review Of Systems: Comprehensive ROS is negative, except as noted in HPI. ED EXAM, GENERAL - Physical Exam Exam: See Below (see dictation) Course - Vital Signs Last Recorded V/S: Last Vital Signs Temp 97.2 F 06/08/19 16:14 Pulse 80 06/08/19 16:14 Resp 16 06/08/19 16:14 BP 131/101 H 06/08/19 16:14 Pulse Ox 98 06/08/19 16:14 - Orders/Labs/Meds Orders: Active Orders 24 hr Category Date Time Status Sodium Chloride 0.9% [Normal Saline] 1,000 ml Med 06/08/19 16:24 Active IV STAT Medication Orders Sodium Chloride (Normal Saline) 1,000 mls @ 999 mls/hr IV STAT ONE Stop: 06/08/19 17:24 Last Admin: 06/08/19 16:39 Dose: 999 mls/hr Labs: Laboratory Tests 06/08/19 06/08/19 06/08/19 Range/Units 16:20 16:20 16:39 WBC 10.91 (4.0-11.0) K/uL RBC 4.88 (4.30-5.90) M/uL Hgb 15.6 (12.0-16.0) g/dL Hct 44.1 (36.0-46.0) % MCV 90.4 (80.0-98.0) fL MCH 32.0 (27.0-32.0) pg MCHC 35.4 (31.0-37.0) g/dL RDW Std Deviation 41.9 (28.0-62.0) fl RDW Coeff of Afshan 13 (11.0-15.0) % Plt Count 293 (150-400) K/uL MPV 9.60 (7.40-12.00) fL Neut % (Auto) 56.4 (48.0-80.0) % Lymph % (Auto) 30.9 (16.0-40.0) % [place] % (Auto) 12.3 (0.0-15.0) % Eos % (Auto) 0.2 (0.0-7.0) % Baso % (Auto) 0.2 (0.0-1.5) % Neut # (Auto) 6.2 H (1.4-5.7) K/uL Lymph # (Auto) 3.4 H (0.6-2.4) K/uL [place] # (Auto) 1.3 H (0.0-0.8) K/uL Eos # (Auto) 0.0 (0.0-0.7) K/uL Baso # (Auto) 0.0 (0.0-0.1) K/uL Nucleated RBC % 0.0 /100WBC Nucleated RBCs # 0 K/uL Sodium (136-145) mmol/L Potassium (3.5-5.1) mmol/L Chloride (98-107) mmol/L Carbon Dioxide (21.0-32.0) mmol/L BUN (7.0-18.0) mg/dL Creatinine (0.6-1.0) mg/dL Est Cr Clr Drug Dosing mL/min Estimated GFR (MDRD) ml/min Glucose (74-106) mg/dL Calcium (8.5-10.1) mg/dL Total Bilirubin (0.2-1.0) mg/dL AST (15-37) IU/L ALT (14-63) IU/L Alkaline Phosphatase (46-116) U/L Total Protein (6.4-8.2) g/dL Albumin (3.4-5.0) g/dL Globulin (2.6-4.0) g/dL Albumin/Globulin Ratio (0.9-1.6) Lipase (73-393) U/L Urine Color YELLOW Urine Appearance CLEAR Urine pH 6.0 (5.0-8.0) Ur Specific [place] >= 1.030 (1.001-1.035) Urine Protein 30 H (NEGATIVE) mg/dL Urine Glucose (UA) NEGATIVE (NEGATIVE) mg/dL Urine Ketones NEGATIVE (NEGATIVE) mg/dL Urine Occult Blood LARGE H (NEGATIVE) Urine Nitrite NEGATIVE (NEGATIVE) Urine Bilirubin SMALL H (NEGATIVE) Urine Urobilinogen 0.2 (<2.0) EU/dL Ur Leukocyte Esterase NEGATIVE (NEGATIVE) Urine RBC 3-6 (0-2/HPF) Urine WBC 0-1 (0-5/HPF) Ur Epithelial Cells OCCASIONAL (NONE-FEW) Urine Bacteria FEW (NEGATIVE) Urine HCG, Qual NEGATIVE (NEGATIVE) 06/08/19 Range/Units 16:39 WBC (4.0-11.0) K/uL RBC (4.30-5.90) M/uL Hgb (12.0-16.0) g/dL Hct (36.0-46.0) % MCV (80.0-98.0) fL MCH (27.0-32.0) pg MCHC (31.0-37.0) g/dL RDW Std Deviation (28.0-62.0) fl RDW Coeff of Afshan (11.0-15.0) % Plt Count (150-400) K/uL MPV (7.40-12.00) fL Neut % (Auto) (48.0-80.0) % Lymph % (Auto) (16.0-40.0) % [place] % (Auto) (0.0-15.0) % Eos % (Auto) (0.0-7.0) % Baso % (Auto) (0.0-1.5) % Neut # (Auto) (1.4-5.7) K/uL Lymph # (Auto) (0.6-2.4) K/uL [place] # (Auto) (0.0-0.8) K/uL Eos # (Auto) (0.0-0.7) K/uL Baso # (Auto) (0.0-0.1) K/uL Nucleated RBC % /100WBC Nucleated RBCs # K/uL Sodium 141 (136-145) mmol/L Potassium 3.2 L (3.5-5.1) mmol/L Chloride 104 (98-107) mmol/L Carbon Dioxide 26.2 (21.0-32.0) mmol/L BUN 21 H (7.0-18.0) mg/dL Creatinine 0.9 (0.6-1.0) mg/dL Est Cr Clr Drug Dosing 71.48 mL/min Estimated GFR (MDRD) > 60.0 ml/min Glucose 110 H (74-106) mg/dL Calcium 9.3 (8.5-10.1) mg/dL Total Bilirubin 0.9 (0.2-1.0) mg/dL AST 23 (15-37) IU/L ALT 38 (14-63) IU/L Alkaline Phosphatase 69 (46-116) U/L Total Protein 8.1 (6.4-8.2) g/dL Albumin 4.0 (3.4-5.0) g/dL Globulin 4.1 H (2.6-4.0) g/dL Albumin/Globulin Ratio 1.0 (0.9-1.6) Lipase 115 (73-393) U/L Urine Color Urine Appearance Urine pH (5.0-8.0) Ur Specific [place] (1.001-1.035) Urine Protein (NEGATIVE) mg/dL Urine Glucose (UA) (NEGATIVE) mg/dL Urine Ketones (NEGATIVE) mg/dL Urine Occult Blood (NEGATIVE) Urine Nitrite (NEGATIVE) Urine Bilirubin (NEGATIVE) Urine Urobilinogen (<2.0) EU/dL Ur Leukocyte Esterase (NEGATIVE) Urine RBC (0-2/HPF) Urine WBC (0-5/HPF) Ur Epithelial Cells (NONE-FEW) Urine Bacteria (NEGATIVE) Urine HCG, Qual (NEGATIVE) Meds: Medications Generic Name Dose Route Start Last Admin Trade Name Freq PRN Reason Stop Dose Admin Sodium Chloride 1,000 mls @ 999 mls/hr 06/08/19 16:24 06/08/19 16:39 Normal Saline IV 06/08/19 17:24 999 mls/hr STAT ONE Administration Discontinued Medications Generic Name Dose Route Start Last Admin Trade Name Freq PRN Reason Stop Dose Admin Diphenhydramine HCl 50 mg 06/08/19 16:24 06/08/19 16:41 Benadryl IVPUSH 06/08/19 16:25 50 mg ONETIME ONE Administration Metoclopramide HCl 10 mg 06/08/19 16:24 06/08/19 16:41 Reglan IV 06/08/19 16:25 10 mg ONETIME ONE Administration Ondansetron HCl 4 mg 06/08/19 16:24 06/08/19 16:41 Zofran IVPUSH 06/08/19 16:25 4 mg ONETIME ONE Administration Departure - Departure Time of Disposition: 17:20 Disposition: Home, Self-Care 01 Clinical Impression: Cyclic vomiting syndrome, Vomiting - Discharge Information Referrals: Mike Loomis MD [Primary Care Provider] - Additional Instructions: The following information is given to patients seen in the emergency department who are being discharged to home. This information is to outline your options for follow-up care. We provide all patients seen in our emergency department with a follow-up referral. The need for follow-up, as well as the timing and circumstances, are variable depending upon the specifics of your emergency department visit. If you don't have a primary care physician on staff, we will provide you with a referral. We always advise you to contact your personal physician following an emergency department visit to inform them of the circumstance of the visit and for follow-up with them and/or the need for any referrals to a consulting specialist. The emergency department will also refer you to a specialist when appropriate. This referral assures that you have the opportunity for follow-up care with a specialist. All of these measure are taken in an effort to provide you with optimal care, which includes your follow-up. Under all circumstances we always encourage you to contact your private physician who remains a resource for coordinating your care. When calling for follow-up care, please make the office aware that this follow-up is from your recent emergency room visit. If for any reason you are refused follow-up, please contact the [facility] Emergency Department at and asked to speak to the emergency department charge nurse. [facility] [address] [place] [id number] [address] [id number] 1. Take medication as prescribed. Encourage small but frequent sips of fluid to prevent dehydration. 2. Follow-up with your primary care provider as discussed. Return to the ED as needed and as discussed. Sepsis Event Note - Focused Exam Vital Signs: Vital Signs Temp Pulse Resp BP Pulse Ox 06/08/19 16:14 97.2 F 80 16 131/101 H 98 Date Exam was Performed: 06/08/19 Time Exam was Performed: 17:18 - My Orders Last 24 Hours: My Active Orders 06/08/19 16:24 Sodium Chloride 0.9% [Normal Saline] 1,000 ml IV STAT - Assessment/Plan Last 24 Hours: My Active Orders 06/08/19 16:24 Sodium Chloride 0.9% [Normal Saline] 1,000 ml IV STAT
[2019-06-08] MEDS ORDERED: Ondansetron 4 MG/2 ML SDV IVPUSH ONE (16:24)
[2019-06-08] MEDS ORDERED: Sodium Chloride 0.9% 1,000 ML IV ONE (16:24)
[2019-06-08] MEDS ORDERED: Metoclopramide 10 MG/2 ML SDV IV ONE (16:24)
[2019-06-08] MEDS ORDERED: diphenhydrAMINE 50 MG/ML SDV IVPUSH ONE (16:24)
[2019-06-08 17:11] LABS: BLOOD UREA NITROGEN,BUN 21 mg/dL (7.0-18.0); CARBON DIOXIDE,CO2 26.2 mmol/L (21.0-32.0); CHLORIDE,CL 104 mmol/L (98-107); GLUCOSE RANDOM 110 mg/dL (74-106); LIPASE 115 U/L (73-393); POTASSIUM,K 3.2 mmol/L (3.5-5.1); SODIUM,NA 141 mmol/L (136-145)
[2019-06-08 17:31] VITALS: BP 133/92; PULSE 55
== END 2019-06-08 18:20 | disposition home or self-care (01) ==
LOC: MW.ED 15:41
DX: R11.15 Cyclical vomiting syndrome unrelated to migraine (principal); Z90.49 Acquired absence of other specified parts of digestive tract
CPT/HCPCS: 36415; 80053; 81001; 81025; 83690; 85025; 96361; 96374; 96375; 99284; J1200; J2405; J2765; J7030; 99283

== ENCOUNTER 2020-08-14 21:08 | Emergency (ER) | payer SELFPAY ==
[2020-08-14] MEDS ORDERED: Ondansetron 4 MG/2 ML SDV IVPUSH ONE (21:23)
[2020-08-14] MEDS ORDERED: Famotidine 20 MG/2 ML SDV IVPUSH ONE (21:23)
[2020-08-14] MEDS ORDERED: Sodium Chloride 0.9% 1,000 ML IV ONE ×2 (21:23→22:01)
[2020-08-14] MEDS ORDERED: Alum Hydrox/Mag Hydrox/Simeth 15 ML, Lidocaine 2% 5 ML PO ONE ×2 (21:23)
--- NOTE | 2020-08-14 21:26 | EDM.PDOC ---
ED HPI GENERAL MEDICAL PROBLEM - General Chief Complaint: Gastrointestinal Problem Stated Complaint: DEHYDRATION Time Seen by Provider: 08/14/20 21:24 Source of Information: Reports: Patient History Limitations: Reports: No Limitations - History of Present Illness INITIAL COMMENTS - FREE TEXT/NARRATIVE: Patient is a 39-year-old female who presents today for nausea vomiting. Patient she has cyclic vomiting syndrome and for the past 2 days not been keeping them down. Patient is not been keeping ice or Sprite down. Patient has some pain in epigastric area but denies any pain radiates. Patient states that made the pain better and or worse. Patient denies any fever chills diarrhea or other symptoms. Abdomen Pain Score (Numeric/FACES): 5 - Related Data Allergies Allergy/AdvReac Type Severity Reaction Status Date / Time No Known Allergies Allergy Verified 08/14/20 21:17 Home Meds: Home Meds Multivitamin [Multivitamins] 1 each PO DAILY 06/06/19 [History] Ondansetron [Zofran ODT] 4 mg PO Q6H PRN #8 tab.dis 06/08/19 [Rx] Amoxicillin 500 mg PO BID 08/14/20 [History] Past Medical History HEENT History: Reports: None Cardiovascular History: Reports: None Respiratory History: Reports: None Gastrointestinal History: Reports: GERD, Other (See Below) Other Gastrointestinal History: "bile reflux" Genitourinary History: Reports: None 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: Musculoskeletal History: Reports: None Psychiatric History: Reports: None Endocrine/Metabolic History: Reports: None Hematologic History: Reports: None Immunologic History: Reports: None Oncologic (Cancer) History: Reports: None Dermatologic History: Reports: None - Infectious Disease History Infectious Disease History: Reports: Chicken Pox - Past Surgical History Head Surgeries/Procedures: Reports: None HEENT Surgical History: Reports: None Cardiovascular Surgical History: Reports: None Respiratory Surgical History: Reports: None GI Surgical History: Reports: Cholecystectomy, Other (See Below) Other GI Surgeries/Procedures: laparoscopy Female Surgical History: Reports: Section Endocrine Surgical History: Reports: None Neurological Surgical History: Reports: None Musculoskeletal Surgical History: Reports: None Oncologic Surgical History: Reports: None Dermatological Surgical History: Reports: None Social & Family History - Family History Family Medical History: No Pertinent Family History - Caffeine Use Caffeine Use: Reports: None Caffeine Use Comment: 1-3 daily ED ROS GENERAL - Review of Systems Review Of Systems: See Below Constitutional: Reports: No Symptoms HEENT: Reports: No Symptoms Respiratory: Reports: No Symptoms Cardiovascular: Reports: No Symptoms Endocrine: Reports: No Symptoms GI/Abdominal: Reports: Abdominal Pain, Nausea, Vomiting : Reports: No Symptoms Musculoskeletal: Reports: No Symptoms Skin: Reports: No Symptoms Neurological: Reports: No Symptoms Psychiatric: Reports: No Symptoms Hematologic/Lymphatic: Reports: No Symptoms Immunologic: Reports: No Symptoms ED EXAM, GI/ABD - Physical Exam Exam: See Below Exam Limited By: No Limitations General Appearance: Alert, WD/WN, No Apparent Distress Throat/Mouth: Normal Inspection Head: Atraumatic, Normocephalic Neck: Normal Inspection Respiratory/Chest: No Respiratory Distress, Lungs Clear, Normal Breath Sounds Cardiovascular: Normal Peripheral Pulses, Regular Rate, Rhythm GI/Abdominal Exam: Normal Bowel Sounds, Soft, Non-Tender Extremities: Normal Inspection, Normal Range of Motion Neurological: Alert, Oriented, Normal Cognition, Normal Gait Course - Vital Signs Last Recorded V/S: Last Vital Signs Temp 97.4 F 08/14/20 21:15 Pulse 68 08/15/20 00:30 Resp 16 08/15/20 00:30 BP 109/75 08/15/20 00:30 Pulse Ox 99 08/15/20 00:30 - Orders/Labs/Meds Orders: Active Orders 24 hr Category Date Time Status OSMOLALITY - SERUM [REF] Stat Lab 08/14/20 21:34 Received OSMOLALITY - URINE Stat Lab 08/14/20 22:04 Ordered Labs: Laboratory Tests 08/14/20 08/14/20 08/14/20 Range/Units 21:34 21:34 21:34 WBC 11.29 H (4.0-11.0) K/uL RBC 5.23 (4.30-5.90) M/uL Hgb 17.2 H (12.0-16.0) g/dL Hct 47.4 H (36.0-46.0) % MCV 90.6 (80.0-98.0) fL MCH 32.9 H (27.0-32.0) pg MCHC 36.3 (31.0-37.0) g/dL RDW Std Deviation 44.1 (28.0-62.0) fl RDW Coeff of Afshan 13 (11.0-15.0) % Plt Count 310 (150-400) K/uL MPV 10.50 (7.40-12.00) fL Neut % (Auto) 68.0 (48.0-80.0) % Lymph % (Auto) 17.3 (16.0-40.0) % [place] % (Auto) 14.5 (0.0-15.0) % Eos % (Auto) 0.0 (0.0-7.0) % Baso % (Auto) 0.2 (0.0-1.5) % Neut # (Auto) 7.7 H (1.4-5.7) K/uL Lymph # (Auto) 2.0 (0.6-2.4) K/uL [place] # (Auto) 1.6 H (0.0-0.8) K/uL Eos # (Auto) 0.0 (0.0-0.7) K/uL Baso # (Auto) 0.0 (0.0-0.1) K/uL Nucleated RBC % 0.0 /100WBC Nucleated RBCs # 0 K/uL Sodium 142 (136-145) mmol/L Potassium 3.5 (3.5-5.1) mmol/L Chloride 104 (98-107) mmol/L Carbon Dioxide 19.5 L (21.0-32.0) mmol/L BUN 37 H (7.0-18.0) mg/dL Creatinine 2.0 H (0.6-1.0) mg/dL Est Cr Clr Drug Dosing 31.86 mL/min Estimated GFR (MDRD) 28.0 ml/min Glucose 165 H (74-106) mg/dL Calcium 9.9 (8.5-10.1) mg/dL Total Bilirubin 0.2 (0.2-1.0) mg/dL AST 69 H (15-37) IU/L ALT 65 H (14-63) IU/L Alkaline Phosphatase 102 (46-116) U/L Total Protein 9.8 H (6.4-8.2) g/dL Albumin 3.9 (3.4-5.0) g/dL Globulin 5.9 H (2.6-4.0) g/dL Albumin/Globulin Ratio 0.7 L (0.9-1.6) Lipase 57 L (73-393) U/L HCG, Qual NEGATIVE (NEG) Urine Color Urine Appearance Urine pH (5.0-8.0) Ur Specific [place] (1.001-1.035) Urine Protein (NEGATIVE) mg/dL Urine Glucose (UA) (NEGATIVE) mg/dL Urine Ketones (NEGATIVE) mg/dL Urine Occult Blood (NEGATIVE) Urine Nitrite (NEGATIVE) Urine Bilirubin (NEGATIVE) Urine Urobilinogen (<2.0) EU/dL Ur Leukocyte Esterase (NEGATIVE) U Hyaline Cast (Auto) (0-2/LPF) Urine RBC (0-2/HPF) Urine WBC (0-5/HPF) Ur Epithelial Cells (NONE-FEW) Urine Bacteria (NEGATIVE) Urine Mucus (NONE-MOD) Ur Random Creatinine mg/dL Ur Random Sodium (40.0-220.0) mmol/L 08/15/20 08/15/20 08/15/20 Range/Units 00:10 00:13 00:13 WBC (4.0-11.0) K/uL RBC (4.30-5.90) M/uL Hgb (12.0-16.0) g/dL Hct (36.0-46.0) % MCV (80.0-98.0) fL MCH (27.0-32.0) pg MCHC (31.0-37.0) g/dL RDW Std Deviation (28.0-62.0) fl RDW Coeff of Afshan (11.0-15.0) % Plt Count (150-400) K/uL MPV (7.40-12.00) fL Neut % (Auto) (48.0-80.0) % Lymph % (Auto) (16.0-40.0) % [place] % (Auto) (0.0-15.0) % Eos % (Auto) (0.0-7.0) % Baso % (Auto) (0.0-1.5) % Neut # (Auto) (1.4-5.7) K/uL Lymph # (Auto) (0.6-2.4) K/uL [place] # (Auto) (0.0-0.8) K/uL Eos # (Auto) (0.0-0.7) K/uL Baso # (Auto) (0.0-0.1) K/uL Nucleated RBC % /100WBC Nucleated RBCs # K/uL Sodium 144 (136-145) mmol/L Potassium 3.8 (3.5-5.1) mmol/L Chloride 110 H (98-107) mmol/L Carbon Dioxide 23.2 (21.0-32.0) mmol/L BUN 32 H (7.0-18.0) mg/dL Creatinine 1.4 H (0.6-1.0) mg/dL Est Cr Clr Drug Dosing 45.51 mL/min Estimated GFR (MDRD) 42.3 ml/min Glucose 111 H (74-106) mg/dL Calcium 7.8 L (8.5-10.1) mg/dL Total Bilirubin (0.2-1.0) mg/dL AST (15-37) IU/L ALT (14-63) IU/L Alkaline Phosphatase (46-116) U/L Total Protein (6.4-8.2) g/dL Albumin (3.4-5.0) g/dL Globulin (2.6-4.0) g/dL Albumin/Globulin Ratio (0.9-1.6) Lipase (73-393) U/L HCG, Qual (NEG) Urine Color YELLOW Urine Appearance SLT CLOUDY Urine pH 5.5 (5.0-8.0) Ur Specific [place] >= 1.030 (1.001-1.035) Urine Protein 100 H (NEGATIVE) mg/dL Urine Glucose (UA) NEGATIVE (NEGATIVE) mg/dL Urine Ketones NEGATIVE (NEGATIVE) mg/dL Urine Occult Blood LARGE H (NEGATIVE) Urine Nitrite NEGATIVE (NEGATIVE) Urine Bilirubin NEGATIVE (NEGATIVE) Urine Urobilinogen 0.2 (<2.0) EU/dL Ur Leukocyte Esterase NEGATIVE (NEGATIVE) U Hyaline Cast (Auto) 2-4 (0-2/LPF) Urine RBC 5-8 (0-2/HPF) Urine WBC 0-2 (0-5/HPF) Ur Epithelial Cells FEW (NONE-FEW) Urine Bacteria FEW (NEGATIVE) Urine Mucus LIGHT (NONE-MOD) Ur Random Creatinine 305.4 mg/dL Ur Random Sodium 25.0 L (40.0-220.0) mmol/L Meds: Medications Discontinued Medications Generic Name Dose Route Start Last Admin Trade Name Freq PRN Reason Stop Dose Admin Al Hydroxide/Mg Hydroxide 15 0 ml 05/27/21 21:23 08/14/20 21:36 ml/ Lidocaine HCl 5 ml PO 08/14/20 21:24 1 each ONETIME ONE Administration Diphenhydramine HCl 50 mg 08/14/20 23:04 08/14/20 23:09 Diphenhydramine 50 Mg/Ml Sdv IVPUSH 08/14/20 23:05 50 mg ONETIME ONE Administration Famotidine 20 mg 08/14/20 21:23 08/14/20 21:35 Famotidine 20 Mg/2 Ml Sdv IVPUSH 08/14/20 21:24 20 mg ONETIME ONE Administration Sodium Chloride 1,000 mls @ 999 mls/hr 08/14/20 21:23 08/14/20 21:35 Normal Saline IV 08/14/20 22:23 999 mls/hr .BOLUS ONE Administration Sodium Chloride 1,000 mls @ 999 mls/hr 08/14/20 22:01 08/14/20 22:57 Normal Saline IV 08/14/20 23:01 999 mls/hr .BOLUS ONE Administration Ondansetron HCl 4 mg 08/14/20 21:23 08/14/20 21:35 Ondansetron 4 Mg/2 Ml Sdv IVPUSH 08/14/20 21:24 4 mg ONETIME ONE Administration - Re-Assessments/Exams Free Text/Narrative Re-Assessment/Exam: 08/15/20 00:42 Patient creatinine has improved after 2 L we calculate her FeNa and was prerenal. Patient is tolerating p.o. and is stable for discharge home. Departure - Departure Time of Disposition: 00:43 Disposition: Home, Self-Care 01 Condition: Good Clinical Impression: Vomiting - Discharge Information *PRESCRIPTION DRUG MONITORING PROGRAM REVIEWED*: Not Applicable *COPY OF PRESCRIPTION DRUG MONITORING REPORT IN PATIENT MELIZA: Not Applicable Instructions: Nausea and Vomiting, Adult, [id number] Referrals: Mike Loomis MD [Primary Care Provider] - Forms: ED Department Discharge Additional Instructions: The following information is given to patients seen in the emergency department who are being discharged to home. This information is to outline your options for follow-up care. We provide all patients seen in our emergency department with a follow-up referral. The need for follow-up, as well as the timing and circumstances, are variable depending upon the specifics of your emergency department visit. If you don't have a primary care physician on staff, we will provide you with a referral. We always advise you to contact your personal physician following an emergency department visit to inform them of the circumstance of the visit and for follow-up with them and/or the need for any referrals to a consulting specialist. The emergency department will also refer you to a specialist when appropriate. This referral assures that you have the opportunity for follow-up care with a specialist. All of these measure are taken in an effort to provide you with optimal care, which includes your follow-up. Under all circumstances we always encourage you to contact your private physician who remains a resource for coordinating your care. When calling for follow-up care, please make the office aware that this follow-up is from your recent emergency room visit. If for any reason you are refused follow-up, please contact the [facility] Emergency Department at and asked to speak to the emergency department charge nurse. Please follow up with your primary care physician. If you do not have a primary care physician, see below: [facility] [address] [place] [id number] [facility] [address] [place] [id number] He was seen today for vomiting. We gave you Zofran IV fluids that help with the vomiting. There was also some elevation of your kidney function but returned to normal after the IV fluids. Recommend you follow-up to primary care physician. If you have any other concerning signs or symptoms please return to ED. Sepsis Event Note (ED) - Evaluation Sepsis Screening Result: No Definite Risk - Focused Exam Vital Signs: Vital Signs Temp Pulse Resp BP Pulse Ox 08/15/20 00:30 68 16 109/75 99 08/14/20 23:14 68 16 128/79 98 08/14/20 21:15 97.4 F 95 18 122/92 H 98 - My Orders Last 24 Hours: My Active Orders 08/14/20 21:34 OSMOLALITY - SERUM [REF] Stat 08/14/20 22:04 OSMOLALITY - URINE Stat - Assessment/Plan Last 24 Hours: My Active Orders 08/14/20 21:34 OSMOLALITY - SERUM [REF] Stat 08/14/20 22:04 OSMOLALITY - URINE Stat Plan: Patient is a 39-year-old female presents today for nausea vomiting. Patient states she has history of cyclic vomiting no need Zofran and fluids comes in. We will give IV fluids obtain labs and reassess patient.
[2020-08-14 21:56] LABS: CARBON DIOXIDE,CO2 19.5 mmol/L (21.0-32.0); POTASSIUM,K 3.5 mmol/L (3.5-5.1)
[2020-08-14] MEDS ORDERED: diphenhydrAMINE 50 MG/ML SDV IVPUSH ONE (23:04)
[2020-08-15 00:25] LABS: CARBON DIOXIDE,CO2 23.2 mmol/L (21.0-32.0); POTASSIUM,K 3.8 mmol/L (3.5-5.1)
[2020-08-15 00:32] VITALS: BP 109/75; PULSE 68
== END 2020-08-15 00:50 | disposition home or self-care (01) ==
LOC: MW.ED 21:08
DX: R11.2 Nausea with vomiting, unspecified (principal)
CPT/HCPCS: 36415; 80048; 80053; 81001; 82570; 83690; 83930; 84300; 84703; 85025; 96374; 96375; 99284; A9270; J1200; J2405; J3490; J7030